=== PATIENT | female | born 1965 | race Caucasian/White ===

== ENCOUNTER 2019-10-30 17:31 | Emergency (ER) | payer MEDICARE, MEDICAID, SELFPAY ==
--- NOTE | ~2019-10-30 | XR_ITS ---
XR foot RT min 3V 10/30/2019 17:55 INDICATION: Right foot pain after recent fall PROCEDURE: 4 views right foot COMPARISON: No prior studies for comparison. FINDINGS: Fracture, dislocation or subluxation is not identified. Lisfranc joint intact. Mild osteoar thritis first MTP joint. The soft tissues appear within normal limits. No foreign bodies are identif ied. IMPRESSION: 1: NO ACUTE BONE OR JOINT ABNORMALITY IDENTIFIED. Reviewed, dictated and finalized at location A.
[2019-10-30 17:43] VITALS: BP 133/95; PULSE 66; RESP 16; TEMP 36.3; O2SAT 100
--- NOTE | 2019-10-30 18:17 | ED.GENADULT ---
HPI - General Adult General Chief complaint: Extremity Injury, Lower Stated complaint: R FOOT INJURY Time Seen by Provider: 10/30/19 17:36 Source: patient Mode of arrival: ambulatory Limitations: no limitations History of Present Illness HPI narrative: Patient is a 53-year-old female who presents with right foot pain noting pain to the digits and forefoot of the foot after injuring the foot over a week ago has still been having pain. Denies new injury or trauma. Notes aching pain worse with activity and movement of the digits . Pain is localized to the forefoot and midfoot with no radiation beyond this. Patient presents per private vehicle in no distress Related Data Allergies Allergy/AdvReac Type Severity Reaction Status Date / Time ibuprofen Allergy Mild SWELLING, Verified 03/23/16 16:17 RASH TO FACE, VOMITING Review of Systems Review of Systems: All systems reviewed & are unremarkable except as noted in HPI and below PMFSH Past Medical History Medical History Anxiety Bowel obstruction Bronchitis COPD (chronic obstructive pulmonary disease) Depression H/O: HTN (hypertension) Hx of melanoma of skin Hypercholesteremia Hypothyroid Thoracic injuries disc compaction Surgical History Surgical History History of appendectomy History of spinal surgery Hx of cardiac cath with 2 stents placed. Hx of tubal ligation Social History Social History Smoking packs per day: 1 Smoking cigarettes per day: 20.0 Smoking status: Current every day smoker Second hand tobacco smoke exposure: Yes Gender identity (if verbalized by the patient): Female Exam Narrative: Exam Narrative: GENERAL: Well-appearing, well-nourished, and in no acute distress. HEAD: Normocephalic, atraumatic. EYES: PERRLA and EOMI. ENT: Nares clear, no rhinorrhea or epistaxis. Mucous membranes moist. EXTREMITIES: Normal range of motion. No edema. SKIN: Warm, dry, no rash. Tenderness of the digits and right forefoot with no deformity noted NEURO: No focal deficits. Alert and oriented x3. Neurovascularly intact. Capillary refill less than 2 seconds PSYCH: Normal mood and affect. Course Course Emergency Course: Patient in the room in no distress aware of case findings treatment plan and diagnosis Vital Signs Vital signs: Vital Signs Temperature 97.4 F L 10/30/19 17:43 Pulse Rate 66 10/30/19 17:43 Respiratory Rate 16 10/30/19 17:43 Blood Pressure 133/95 H 10/30/19 17:43 Pulse Oximetry 100 10/30/19 17:43 Temperature 97.4 F L 10/30/19 17:43 Pulse Rate 66 10/30/19 17:43 Respiratory Rate 16 10/30/19 17:43 Blood Pressure 133/95 H 10/30/19 17:43 Pulse Oximetry 100 10/30/19 17:43 Medical Decision Making MDM Narrative Medical decision making narrative: Patients injury or pain is consistent with musculoskeletal etiology. No signs of neurological or vascular compromise on exam. Compartments and tisues are soft without signs of compartment syndrome. Pain is felt appropriate for further evaluation on an outpatient basis. Vital Signs Vital Signs: Vital Signs Temperature 97.4 F L 10/30/19 17:43 Pulse Rate 66 10/30/19 17:43 Respiratory Rate 16 10/30/19 17:43 Blood Pressure 133/95 H 10/30/19 17:43 Pulse Oximetry 100 10/30/19 17:43 Temperature 97.4 F L 10/30/19 17:43 Pulse Rate 66 10/30/19 17:43 Respiratory Rate 16 10/30/19 17:43 Blood Pressure 133/95 H 10/30/19 17:43 Pulse Oximetry 100 10/30/19 17:43 Discharge Plan Discharge Clinical Impression: Acute pain of right foot Patient Disposition: Home, Self-Care Condition: Stable Instructions: Antibiotic Form, Foot Sprain (ED) Additional Instructions: Wear postop shoe with limited weight on the affected leg until able to bear weight wit
[2019-10-30 18:28] VITALS: BP 128/62; PULSE 78; RESP 16; TEMP 36.9; O2SAT 99
== END 2019-10-30 18:30 | disposition home or self-care (01) ==
PROVIDERS: Emergency Provider Emergency Medicine; PCP Internal Medicine
DX: M79.671 Pain in right foot (principal); J44.9 Chronic obstructive pulmonary disease, unspecified; I10 Essential (primary) hypertension; Z85.820 Personal history of malignant melanoma of skin; E78.00 Pure hypercholesterolemia, unspecified; E03.9 Hypothyroidism, unspecified; Z95.5 Presence of coronary angioplasty implant and graft; F17.210 Nicotine dependence, cigarettes, uncomplicated
CPT/HCPCS: 73630; 99283

== ENCOUNTER 2019-11-23 13:01 | Outpatient (CLI) | payer MEDICARE, MEDICAID, SELFPAY ==
--- NOTE | ~2019-11-23 | MR_ITS ---
EXAMINATION: MR cervical spine wo con EXAM DATE: 11/23/2019 13:55 INDICATION: Cervical radiculopathy. TECHNIQUE: Multi-sequential, multiplanar MR images of the cervical spine were obtained without contra st. Axial T2, axial T2 MERGE sequence. Sagittal T1, T2, T2 fat saturation images also obtained. Th ere is no prior study for comparison. FINDINGS: The vertebral bodies are aligned in the AP dimension. Vertebral body and disc heights are well-maintained. The spinal cord signal intensity and intrinsic morphology is normal. Cervicomedullar y junction is normal in appearance. There are no suspicious marrow signal abnormalities. Paraspinal s oft tissue is unremarkable. Level by level evaluation: C2-C3: Disc does not extend beyond the endplate margin. Uncovertebral joint arthropathy: None. Facet joint arthropathy: Mild bilateral. Neural foraminal stenosis: No stenosis. Central canal stenosis: No stenosis. C3-C4: Disc does not extend beyond the endplate margin. Uncovertebral joint arthropathy: None. Facet joint arthropathy: Mild to moderate bilateral. Neural foraminal stenosis: No stenosis. Central canal stenosis: No stenosis. C4-C5: Disc does not extend beyond the endplate margin. Uncovertebral joint arthropathy: None. Facet joint arthropathy: Mild to moderate bilateral. Neural foraminal stenosis: No stenosis. Central canal stenosis: No stenosis. C5-C6: Disc does not extend beyond the endplate margin. Uncovertebral joint arthropathy: Mild bilateral. Facet joint arthropathy: Mild to moderate bilateral. Neural foraminal stenosis: Mild right. Central canal stenosis: No stenosis. C6-C7: Disc does not extend beyond the endplate margin. Uncovertebral joint arthropathy: None. Facet joint arthropathy: Mild bilateral. Neural foraminal stenosis: No stenosis. Central canal stenosis: No stenosis. C7-T1: Disc does not extend beyond the endplate margin. Uncovertebral joint arthropathy: None. Facet joint arthropathy: Mild bilateral. Neural foraminal stenosis: No stenosis. Central canal stenosis: No stenosis. IMPRESSION: Mild to moderate cervical arthropathy without stenosis. Reviewed, dictated and finalized at location A.
== END 2019-11-23 13:02 | disposition home or self-care (01) ==
PROVIDERS: PCP Internal Medicine; Visit Provider Psychiatry & Neurology Neurology
DX: M54.12 Radiculopathy, cervical region (principal)
CPT/HCPCS: 72141

== ENCOUNTER 2021-05-02 16:40 | Emergency (ER) | payer MEDICARE, MEDICAID, SELFPAY ==
--- NOTE | ~2021-05-02 | US_ITS ---
EXAMINATION: US pelvic complete w TV DATE: 05/02/2021 17:33 INDICATION: Pelvic pain TECHNIQUE: Multiple transabdominal and endovaginal sonographic images of the pelvis were obtained. COMPARISON: None. FINDINGS: The uterus measures 4.6 x 2.6 x 3.4 cm. The endometrial complex measures 5 mm. The ovaries are not visualized however no adnexal abnormality is seen. There is no free fluid in the pelvis. IMPRESSION: 1. No sonographic correlate for the patient's symptoms. Reviewed, dictated and finalized at location F. CRINOLOGY PHYSICIAN
[2021-05-02 16:42] VITALS: BP 170/107; PULSE 98; RESP 17; TEMP 36.7; O2SAT 100
[2021-05-02 17:40] LABS: Add Urine Microscopic? YES; Appearance Urine Clear (Clear); Bilirubin Urine Negative (Negative); Blood Urine Negative (Negative); Color Urine Yellow (Yellow); Glucose Urine UA Negative (Negative); Ketones Urine Negative (Negative); Leukocyte Esterase Ur Trace LEU/UL (Negative); Mucus Urine Few /lpf; Nitrate Urine Negative (Negative); Protein Urine Negative (Negative); Specific Grav Ur 1.025 (1.001-1.035); Squamous Epithelial Cell Urine Occasional /hpf (Few); Urobilinogen Urine Negative mg/dL (<2.0); WBC Urine 0-3 /hpf
[2021-05-02] MEDS: KETOROLAC 30 MG/ML VIAL (*BKC) IM (17:40)
[2021-05-02 18:18] VITALS: BP 142/78; PULSE 78; RESP 18; O2SAT 97
--- NOTE | 2021-05-02 18:23 | ED.GENADULT ---
HPI - General Adult General Chief complaint: Urogenital-Female <Leonard Wall PA-C - Last Filed: 05/02/21 19:29> Stated complaint: BV PELVIC PAIN ?PID <Leonard Wall PA-C - Last Filed: 05/02/21 19:29> Time Seen by Provider: 05/02/21 16:50 <Leonard Wall PA-C - Last Filed: 05/02/21 19:29> Source: patient <Leonard Wall PA-C - Last Filed: 05/02/21 19:29> Mode of arrival: ambulatory <Leonard Wall PA-C - Last Filed: 05/02/21 19:29> Limitations: no limitations <Leonard Wall PA-C - Last Filed: 05/02/21 19:29> History of Present Illness HPI narrative: Patient is a 59-year-old female with chief complaint of pelvic pain over the past 6 months. Patient reports she has been evaluated by her provider [facility]. She reports having received these labs, pelvic exam, Pap smear. She was diagnosed with BV and put on antibiotics which cleared her vaginal discharge but has not remitted her intermittent pelvic pain. Patient reports her doctor told her the next step was a pelvic US but they have not yet gotten her scheduled. Patient reports she was told they didn't see abnormalities during her pelvic. She reports sexual intercourse is painful. She denies vaginal bleeding, vaginal discharge, or other vaginal abnormalities. Patient denies fever, chills, nausea, vomiting, diarrhea. Patient also reports burning with urination. <Leonard Wall PA-C - Last Filed: 05/02/21 19:29> Related Data Home medications: Home Medications Medication Instructions Recorded Confirmed acyclovir 05/02/21 baclofen 10 mg PO 05/02/21 clopidogrel 05/02/21 doxycycline monohydrate 100 mg PO 05/02/21 levothyroxine 137 mcg PO 05/02/21 metronidazole 05/02/21 oxycodone-acetaminophen 05/02/21 rosuvastatin mg 05/02/21 <VIV Booker Last Filed: 05/02/21 19:29> Allergies/adverse reactions: Allergies Allergy/AdvReac Type Severity Reaction Status Date / Time No Known Allergies Allergy Verified 05/02/21 16:59 <Leonard Wall PA-C - Last Filed: 05/02/21 19:29> Review of Systems Review of Systems: CONSTITUTIONAL: Denies fever, chills, or sweats. EYES: Denies visual changes, redness, or discharge. ENT: Denies rhinorrhea, congestion, sore throat, or otalgia. CARDIOVASCULAR: Denies chest pain, palpitations, or edema. RESPIRATORY: Denies cough or dyspnea. GASTROINTESTINAL: Denies abdominal pain, nausea, vomiting, or diarrhea. GENITOURINARY: Reports intermittent pelvic pain Denies dysuria or hematuria. SKIN: Denies rash or itching. MUSCULOSKELETAL: Denies back pain, joint pain, or myalgia. NEUROLOGIC: Denies headache, numbness, dizziness, or weakness. PSYCHIATRIC: Denies anxiety or depression. <Leonard Wall PA-C - Last Filed: 05/02/21 19:29> [facility]LY [facility] Past Medical History Medical History: Medical History (Updated 05/03/21 @ 00:00 by Fabian Florian) Anxiety Bowel obstruction Bronchitis COPD (chronic obstructive pulmonary disease) Depression H/O: HTN (hypertension) Hx of melanoma of skin Hypercholesteremia Hypothyroid Thoracic injuries disc compaction <Leonard Wall PA-C - Last Filed: 05/02/21 19:29> Surgical History Surgical History: Surgical History History of appendectomy History of spinal surgery Hx of cardiac cath with 2 stents placed. Hx of tubal ligation <Leonard Wall PA-C - Last Filed: 05/02/21 19:29> Social History Social History: Social History Smoking packs per day: 1 Smoking cigarettes per day: 20.0 Smoking status: Current every day smoker Second hand tobacco smoke exposure: Yes Gender identity (if verbalized by the patient): Female <VIV Booker Last Filed: 05/02/21 19:29> Exam Narrative: GENERAL: Well-nourished. Nontoxic in appearance. HEAD: Normocephalic, atraumatic. EYES: PERRLA and EOMI. CHEST: Clear to ausculta
[2021-05-02 19:32] VITALS: PULSE 70; RESP 18; O2SAT 100
== END 2021-05-02 19:32 | disposition home or self-care (01) ==
PROVIDERS: Emergency Provider Emergency Medicine; PCP Internal Medicine
DX: R10.2 Pelvic and perineal pain (principal); J44.9 Chronic obstructive pulmonary disease, unspecified; I10 Essential (primary) hypertension; Z85.820 Personal history of malignant melanoma of skin; E78.00 Pure hypercholesterolemia, unspecified; E03.9 Hypothyroidism, unspecified; F17.210 Nicotine dependence, cigarettes, uncomplicated
CPT/HCPCS: 76830; 76856; 81001; 81025; 87086; 96372; 99284; J1885

== ENCOUNTER 2022-04-28 02:50 | Emergency (ER) | payer MEDICARE, MEDICAID, SELFPAY ==
[2022-04-28 02:51] VITALS: BP 137/89; PULSE 98; RESP 16; O2SAT 98
--- NOTE | 2022-04-28 02:56 | ED.BACK ---
HPI - Back Pain/Injury General Chief Complaint: Back Pain/Injury Stated Complaint: BACK PAIN-CHRONIC Time Seen by Provider: 04/28/22 02:51 Source: patient Mode of arrival: EMS Limitations: no limitations History of Present Illness HPI Narrative: 56-year-old with a history of chronic back pain here with complaints of increased back pain since last night. Patient states that she ran out of oxycodone tablets. Patient states that her mom was admitted to the hospital a week ago and she has been in the hospital with her and was unable to get her medication refill, she states that she is under pain management. She is states that she was unable to sleep because of her pain. She denies any fever or chills. Patient states that she has been taking more than normal dose. MD elicited complaint: back pain Pertinent past history: prior back pain Onset (ago): year(s) Timing: constant Severity: moderate Similar Symptoms Previously: Yes Quality: stabbing and aching Location: lumbar spine, thoracic spine and left lower back Radiation: none Exacerbating factors: none Relieving factors: none Associated symptoms: denies other symptoms Related Data Home Medications Medication Instructions Recorded Confirmed acyclovir 400 mg tablet 05/02/21 baclofen 10 mg tablet 10 mg PO 05/02/21 clopidogrel 75 mg tablet 05/02/21 doxycycline monohydrate 100 mg 100 mg PO 05/02/21 capsule levothyroxine 137 mcg tablet 137 mcg PO 05/02/21 metronidazole 500 mg tablet 05/02/21 oxycodone-acetaminophen 5 mg-325 05/02/21 mg tablet rosuvastatin 20 mg tablet mg 05/02/21 Allergies Allergy/AdvReac Type Severity Reaction Status Date / Time No Known Allergies Allergy Verified 04/28/22 02:56 Review of Systems Review of Systems: All systems reviewed & are unremarkable except as noted in HPI and below Constitutional: Constitutional: Reports no additional constitutional complaints Eyes: Eyes: Reports no additional eye complaints ENT: Reports system reviewed and no additional complaints, except as documented Cardiovascular: Cardiovascular: Reports no additional cardiovascular complaints Respiratory: Respiratory: Reports no additional respiratory complaints Musculoskeletal: Musculoskeletal: Reports as per HPI Integumentary/Breasts: Skin/Breast: Reports system reviewed and no additional complaints, except as docu [facility] Past Medical History Medical History (Updated 04/28/22 @ 03:03 by oHracio Owens MD) Anxiety Bowel obstruction Bronchitis COPD (chronic obstructive pulmonary disease) Depression H/O: HTN (hypertension) Hx of melanoma of skin Hypercholesteremia Hypothyroid Thoracic injuries disc compaction Surgical History Surgical History History of appendectomy History of spinal surgery Hx of cardiac cath with 2 stents placed. Hx of tubal ligation Social History Social History Smoking packs per day: 1 Smoking cigarettes per day: 20.0 Smoking status: Current every day smoker Second hand tobacco smoke exposure: Yes Gender identity (if verbalized by the patient): Female Exam Narrative: GENERAL: Well-appearing, well-nourished, and in no acute distress. HEAD: Normocephalic, atraumatic. EYES: PERRLA and EOMI. NECK: Supple. CHEST: Clear to auscultation. No respiratory distress. HEART: Regular rate and rhythm. No murmur heard. Normal peripheral pulses. EXTREMITIES: Normal range of motion. No edema. SKIN: Warm, dry, no rash. NEURO: No focal deficits. Alert and oriented x3. PSYCH: Normal mood and affect. Course Course Emergency Course: Inform patient that we would not be able to refill her chronic pain medication there is being a weekend we will give her very limited supply patient is agreeable with the plan Vital Signs Vital signs: Vital Signs Pulse Rate 98 04/28/22 02:51 Respiratory Rate 16
== END 2022-04-28 03:58 | disposition home or self-care (01) ==
LOC: ANHED 03:07
PROVIDERS: Emergency Provider Family Medicine; PCP Internal Medicine
DX: G89.4 Chronic pain syndrome (principal); M54.50 Low back pain, unspecified; J44.9 Chronic obstructive pulmonary disease, unspecified; I10 Essential (primary) hypertension; E78.00 Pure hypercholesterolemia, unspecified; E03.9 Hypothyroidism, unspecified; Z85.820 Personal history of malignant melanoma of skin; Z95.5 Presence of coronary angioplasty implant and graft; F17.210 Nicotine dependence, cigarettes, uncomplicated
CPT/HCPCS: 99283

== ENCOUNTER 2022-08-21 19:55 | Emergency (ER) | payer MEDICARE, MEDICAID, SELFPAY ==
[2022-08-21 20:19] VITALS: BP 126/111; PULSE 108; RESP 20; TEMP 37; O2SAT 98
--- NOTE | 2022-08-21 22:14 | PC.NURSE ---
no answer x2 at triage
== END 2022-08-21 22:15 | disposition left against medical advice (07) ==
PROVIDERS: PCP Internal Medicine
DX: R10.2 Pelvic and perineal pain (principal)
CPT/HCPCS: 99199

== ENCOUNTER 2022-09-05 13:30 | Outpatient (CLI) | payer MEDICARE, MEDICAID, SELFPAY ==
--- NOTE | ~2022-09-05 | XR_ITS ---
EXAMINATION: XR lg joint inject/asp w image DATE: 09/05/2022 14:34 INDICATION: Right sacroiliac joint pain. TECHNIQUE: A time-out was performed to verify the patient's name, date of , and procedure to b e performed. The procedure including the risks, benefits, and alternatives was discussed with the pat ient. Risks discussed included bleeding and infection. The patient understood the risks and agreed to proceed. The skin overlying the right sacroiliac joint was prepped and draped in usual sterile fas ion. Anesthetic was administered with 1% lidocaine subcutaneously. A 22 G needle was advanced under fluoroscopic guidance into the joint. Subsequently, injectate consisting of 2 mL 1% lidocaine and 1 mL 80 mg/mL Depo-Medrol was instilled. The needle was removed and the entry site was cleaned and dr essed. There were no immediate complications. Fluoroscopy exposure time was 0.0 minutes. The total n umber of images was 1. FINDINGS: Real-time fluoroscopy demonstrates the needle in the right sacroiliac joint. Patient's pain prior to procedure:09/29. Patient's pain following the procedure: 06/01. IMPRESSION: 1. Fluoroscopy guided right sacroiliac joint injection of local anesthetic and steroid with decrease in the patient's presenting pain. Reviewed, dictated and finalized at location A.
== END 2022-09-05 13:31 | disposition home or self-care (01) ==
PROVIDERS: PCP Internal Medicine; Visit Provider Orthopaedic Surgery
DX: R10.2 Pelvic and perineal pain (principal); M54.50 Low back pain, unspecified
CPT/HCPCS: 20610; 77002; J1040

== ENCOUNTER 2022-12-20 20:57 | Emergency (ER) | payer MEDICARE, MEDICAID, SELFPAY ==
--- NOTE | ~2022-12-20 | XR_ITS ---
EXAMINATION: XR chest 2V DATE: 12/20/2022 21:52 INDICATION: Shortness of breath. TECHNIQUE: Frontal and lateral views of the chest were obtained. COMPARISON: Chest 2 views 04/24/2019 FINDINGS: There is chronic blunting of left lateral costophrenic angle, consistent with scarring. No pneumonia, pleural effusion or pneumothorax. The heart size is normal. There are old left rib deformi ties. IMPRESSION: 1. No acute cardiopulmonary disease. Reviewed, dictated and finalized at location E.
[2022-12-20 20:55] VITALS: BP 138/95; PULSE 99; RESP 20; TEMP 36.8; O2SAT 96
--- NOTE | 2022-12-20 21:01 | ECG_ITS ---
Measurements Intervals [place] Rate: 88 P: 85 MN: 147 QRS: 46 QRSD: 74 T: 51 QT: 345 QTc: 419 Interpretive Statements SINUS RHYTHM POSSIBLE LEFT ATRIAL ENLARGEMENT NONSPECIFIC T-WAVE ABNORMALITY- DIFFUSE LEADS BASELINE ARTIFACT- I, II, AVR, AVL, AVF, V2-V6 BORDERLINE ECG COMPARED TO ECG 04/24/2019 18:34:44 NO SIGNIFICANT CHANGES Electronically Signed On 12-21-2022 6:48:09 CDT by Hung Palencia D.O.
--- NOTE | 2022-12-20 21:27 | ED.SOB ---
HPI - SOB/Dyspnea General Chief Complaint: Shortness of Breath/Dyspnea Stated Complaint: sob Time Seen by Provider: 12/20/22 21:05 History of Present Illness HPI Narrative: Patient is a 57-year-old female with a history of COPD presenting with shortness of breath. Patient states that since yesterday she has had a nasal congestion and cough. States that she started taking some Mucinex today but she became increasingly short of breath. States that her chest felt tight and full. States that her inhalers are out. EMS was called and she received Decadron and a breathing treatment. She states that she feels much better now. No fevers or chills, numbness or weakness, chest pain, lightheadedness, abdominal pain, nausea or vomiting, dysuria, leg swelling. Related Data Home Medications Medication Instructions Recorded Confirmed acyclovir 400 mg tablet 05/02/21 baclofen 10 mg tablet 10 mg PO 05/02/21 clopidogrel 75 mg tablet 05/02/21 doxycycline monohydrate 100 mg 100 mg PO 05/02/21 capsule levothyroxine 137 mcg tablet 137 mcg PO 05/02/21 metronidazole 500 mg tablet 05/02/21 oxycodone-acetaminophen 5 mg-325 05/02/21 mg tablet rosuvastatin 20 mg tablet mg 05/02/21 Allergies Allergy/AdvReac Type Severity Reaction Status Date / Time ibuprofen AdvReac Vomiting Verified 12/20/22 21:05 Review of Systems Review of Systems: All systems reviewed & are unremarkable except as noted in HPI and below PMFSH Past Medical History Medical History (Updated 12/21/22 @ 22:19 by Ashley Davenport MD) Anxiety Bowel obstruction Bronchitis COPD (chronic obstructive pulmonary disease) Depression H/O: HTN (hypertension) Hx of melanoma of skin Hypercholesteremia Hypothyroid Thoracic injuries disc compaction Surgical History Surgical History History of appendectomy History of spinal surgery Hx of cardiac cath with 2 stents placed. Hx of tubal ligation Social History Social History Smoking packs per day: 1 Smoking cigarettes per day: 20.0 Smoking status: Current every day smoker Second hand tobacco smoke exposure: Yes Gender identity (if verbalized by the patient): Female Exam Narrative: GENERAL: Well-appearing, well-nourished, and in no acute distress. Pleasant and cooperative HEAD: Normocephalic, atraumatic. EYES: PERRLA and EOMI. ENT: Nares clear, no rhinorrhea or epistaxis. Mucous membranes moist. NECK: Supple. CHEST: Expiratory wheezing bilaterally, no respiratory distress HEART: Regular rate and rhythm ABDOMEN: Soft, nontender, nondistended EXTREMITIES: Normal range of motion. No edema. SKIN: Warm, dry, no rash. NEURO: No focal deficits. Alert and oriented x3. PSYCH: Normal mood and affect. Course Vital Signs Vital signs: Vital Signs Temperature 98.2 F 12/20/22 20:55 Pulse Rate 99 12/20/22 20:55 Respiratory Rate 20 12/20/22 20:55 Blood Pressure 138/95 H 12/20/22 20:55 Pulse Oximetry 96 12/20/22 20:55 Oxygen Delivery Room Air 12/20/22 20:55 Temperature 98.2 F 12/20/22 20:55 Pulse Rate 112 H 12/20/22 23:01 Respiratory Rate 18 12/20/22 23:01 Blood Pressure 153/98 H 12/20/22 23:01 Pulse Oximetry 95 12/20/22 23:01 Oxygen Delivery Room Air 12/20/22 20:55 MDM - SOB/Dyspnea MDM Narrative Medical decision making narrative: Patient is a 57-year-old female presenting with shortness of breath. On arrival, vitals are within normal limits. Patient is very wheezy on exam. Breathing treatment, fluids have been ordered. She already received steroids from EMS. Blood work with hypokalemia. Troponin came back elevated at 0.088. Potassium has been repleted. Discussed the elevation in troponin and admitted the patient to the hospitalist but then the patient states that she was not staying. Patient left AGAINST MEDICAL ADVICE. Shirley
[2022-12-20] MEDS: ALBUTEROL SULFATE NEB 2.5 MG/3 ML INH 10 MG INHALATION (21:49)
[2022-12-20 21:50] VITALS: PULSE 80; RESP 14
[2022-12-20] MEDS: IPRATROPIUM BR 0.02% INH SOLN 0.5 MG/2.5 ML VIAL INHALATION (21:50)
[2022-12-20 21:53] LABS: Basophils Absolute Auto 0.1 K/mm3 (0.0-0.1); Basophils Percent Auto 0.7 % (0.2-1.2); Eosinophils Absolute Auto 0.2 K/mm3 (0-0.3); Eosinophils Percent Auto 2.7 % (0-4.4); Immature Granulocyte Absolute 0.04 K/mm3 (0.00-0.031); Immature Granulocyte Percent A 0.5 % (0-0.5); Lymphocytes Absolute Auto 0.84 K/mm3 (0.9-3.2); Lymphocytes Percent Auto 11.4 % (18.3-44.2); Mean Corpuscular HGB Conc 33.3 g/dl (32-36); Mean Corpuscular Hemoglobin 31.3 pg (26-34); Mean Corpuscular Volume 93.9 fl (80-100); Mean Platelet Volume 10.3 fl (7.4-10.4); Monocytes Absolute Auto 0.5 K/mm3 (0.1-0.6); Monocytes Percent Auto 6.1 % (2.6-8.5); Neutrophils Absolute Auto 5.8 K/mm3 (1.3-6.7); Neutrophils Percent Auto 78.6 % (45.5-73.1); Platelet Count Result 198 k/mm3 (150-375); Red Blood Count 4.79 M/mm3 (4.2-5.4); Red Cell Distribution Width 13.1 % (11.5-14.5); White Blood Count 7.4 K/mm3 (4.5-10.0)
[2022-12-20 22:03] LABS: Alanine Aminotransferase 19 U/L (6-35); Albumin Level 4.5 g/dL (3.5-5.1); Alkaline Phosphatase 85 U/L (38-126); Anion Gap 11 mmol/L (8-16); Aspartate Amino Transferase 32 U/L (14-36); Bilirubin,Total 0.4 mg/dL (0.2-1.3); Blood Urea Nitrogen 9 mg/dL (7-17); Calcium 9.3 mg/dL (8.4-10.2); Carbon Dioxide 23 mmol/L (22-30); Chloride 103 mmol/L (98-107); Estimated CRCL calculation 85 ml/min; Estimated Glomerular Filt Rate > 60; Glucose 159 mg/dL (65-110); Potassium 3.2 mmol/L (3.4-5.0); Sodium 137 mmol/L (137-145)
[2022-12-20 22:23] LABS: Troponin I 0.088 ng/mL (0.000-0.034)
[2022-12-20 22:29] LABS: Influenza A QL RT-PCR Negative (Negative); Influenza B QL RT-PCR Negative (Negative); RSV RNA, RT-PCR Negative (Negative); SARS-CoV-2 RNA PCR Negative (Negative)
[2022-12-20] MEDS: POTASSIUM CHLORIDE 20 MEQ ER TABLET 40 MEQ PO (22:57)
[2022-12-20] MEDS: SODIUM CHLORIDE 0.9% IV 1,000 ML 999 ML IV CONT (22:57)
[2022-12-20] MEDS: ASPIRIN 81 MG CHEWABLE TABLET 324 MG PO (22:57)
[2022-12-20] MEDS: ONDANSETRON INJ 4 MG/2 ML VIAL IV PUSH (22:58)
[2022-12-20 23:01] VITALS: BP 153/98; PULSE 112; RESP 18; O2SAT 95
--- NOTE | 2022-12-21 00:53 | PM.EVENT ---
Event Note Event Note Event Note: ED physician called me to admit this patient with shortness of breath and mild chest discomfort with mildly elevated troponin-I level of 0.088. She is a chronic smoker and had some wheezing as well. I accepted the patient to be placed under observation status overnight to monitor cardiac enzymes and for cardiology evaluation and workup in am. ED physician put her admits ordered in, but then patient decided to leave against medical advice.Patient was seen, evaluated and discharge by ED physician. Please note I have neither seen nor evaluated the patient during her ER stay, and she did not make it up the floor to be admitted under hospitalist service. ?
== END 2022-12-21 00:02 | disposition left against medical advice (07) ==
LOC: ANHED 21:36
PROVIDERS: Emergency Medicine; Emergency Provider Emergency Medicine; PCP Internal Medicine
DX: J44.1 Chronic obstructive pulmonary disease with (acute) exacerbation (principal); R77.8 Other specified abnormalities of plasma proteins; Z20.822 Contact with and (suspected) exposure to COVID-19; I10 Essential (primary) hypertension; E78.00 Pure hypercholesterolemia, unspecified; E03.9 Hypothyroidism, unspecified; F17.210 Nicotine dependence, cigarettes, uncomplicated; Z85.820 Personal history of malignant melanoma of skin; R94.31 Abnormal electrocardiogram [ECG] [EKG]
CPT/HCPCS: 36415; 71046; 80053; 84484; 85025; 87637; 93005; 94640; 96361; 96374; 99284; A9270; J2405; J7030

== ENCOUNTER 2023-03-12 09:54 | Emergency (ER) | payer MEDICARE, MEDICAID, SELFPAY ==
[2023-03-12] VITALS (16 sets, daily range): BP systolic 104–132; BP diastolic 80–97; PULSE 81–114; RESP 15–20; TEMP 36.4; O2SAT 95–100
--- NOTE | ~2023-03-12 | CT_ITS ---
EXAMINATION: CT abdomen pelvis w con DATE: 03/12/2023 11:20 INDICATION: Pelvic floor pain. TECHNIQUE: Computed tomography (CT) of the abdomen and pelvis was performed with 100 mL Omnipaque 350 intravenous contrast. Automated exposure control and iterative reconstruction technique were employe d. The dose-length product was 301.19 mGy-cm. COMPARISON: None. FINDINGS: The visualized portions of the lung bases demonstrate mild atelectasis. No pleural effusion . The heart size is normal. There are coronary artery calcifications. No pericardial effusion. There is mild intrahepatic bile duct dilatation. The common duct is dilated to 9 mm. The gallbladder is dis tended. The spleen, pancreas, adrenal glands, and kidneys are normal. There is calcified atherosclero sis of the aorta and many of the other arteries. The appendix is not visualized. There are no patholo gically enlarged lymph nodes. There is no free intraperitoneal fluid. There is mild thoracic and lumb ar spondylosis. IMPRESSION: 1. Mild intrahepatic and extrahepatic biliary duct dilatation and gallbladder distention. No obstruct ing stone or mass identified. Reviewed, dictated and finalized at location E. AGENT IMPRESSION: 1. Mild intrahepatic and extrahepatic biliary duct dilatation and gallbladder d istention. No obstructing stone or mass identified.
[2023-03-12 10:35] LABS: Basophils Absolute Auto 0.1 K/mm3 (0.0-0.1); Basophils Percent Auto 0.7 % (0.2-1.2); Eosinophils Absolute Auto 0.1 K/mm3 (0-0.3); Eosinophils Percent Auto 1.8 % (0-4.4); Hematocrit 47.3 % (37.0-47.0); Hemoglobin 15.6 g/dL (12.0-15.0); Immature Granulocyte Absolute 0.03 K/mm3 (0.00-0.031); Immature Granulocyte Percent A 0.4 % (0-0.5); Lymphocytes Absolute Auto 1.32 K/mm3 (0.9-3.2); Lymphocytes Percent Auto 17.2 % (18.3-44.2); Mean Corpuscular Hemoglobin 30.6 pg (26-34); Mean Corpuscular Volume 92.7 fl (80-100); Monocytes Absolute Auto 0.4 K/mm3 (0.1-0.6); Monocytes Percent Auto 5.1 % (2.6-8.5); Neutrophils Absolute Auto 5.7 K/mm3 (1.3-6.7); Neutrophils Percent Auto 74.8 % (45.5-73.1); Platelet Count Result 272 k/mm3 (150-375); Red Cell Distribution Width 12.4 % (11.5-14.5); White Blood Count 7.7 K/mm3 (4.5-10.0)
[2023-03-12 10:36] LABS: Appearance Urine Clear (Clear); Bilirubin Urine Negative (Negative); Blood Urine Negative (Negative); Color Urine Yellow (Yellow); Glucose Urine UA 3+ mg/dL (Negative); Ketones Urine 1+ mg/dL (Negative); Leukocyte Esterase Ur Negative LEU/UL (Negative); Nitrate Urine Negative (Negative); Protein Urine Negative (Negative); Specific Grav Ur 1.022 (1.001-1.035); pH Urine 7.5 (5.0-9.0)
--- NOTE | 2023-03-12 10:38 | ED.GENADULT ---
HPI - General Adult General Chief complaint: Unspecified Stated complaint: pelvic floor pain Time Seen by Provider: 03/12/23 10:17 History of Present Illness HPI narrative: 57-year-old female presenting to the emergency department for evaluation of pelvic pain. Patient reports that she has chronic pelvic pain daily. Patient states yesterday she ran out of her pain medications due to increased activity due to the holidays. Patient states he does not get a medication refill until tomorrow. Related Data Home Medications Medication Instructions Recorded Confirmed acyclovir 400 mg tablet 05/02/21 baclofen 10 mg tablet 10 mg PO 05/02/21 clopidogrel 75 mg tablet 05/02/21 doxycycline monohydrate 100 mg 100 mg PO 05/02/21 capsule levothyroxine 137 mcg tablet 137 mcg PO 05/02/21 metronidazole 500 mg tablet 05/02/21 oxycodone-acetaminophen 5 mg-325 05/02/21 mg tablet rosuvastatin 20 mg tablet mg 05/02/21 Allergies Allergy/AdvReac Type Severity Reaction Status Date / Time ibuprofen AdvReac Vomiting Verified 12/20/22 21:05 Review of Systems Review of Systems: All systems reviewed & are unremarkable except as noted in HPI and below PMFSH Past Medical History Medical History (Updated 03/12/23 @ 12:46 by Jesus Keenan MD) Anxiety Bowel obstruction Bronchitis COPD (chronic obstructive pulmonary disease) Depression H/O: HTN (hypertension) Hx of melanoma of skin Hypercholesteremia Hypothyroid Thoracic injuries disc compaction Surgical History Surgical History History of appendectomy History of spinal surgery Hx of cardiac cath with 2 stents placed. Hx of tubal ligation Social History Social History Smoking packs per day: 1 Smoking cigarettes per day: 20.0 Smoking status: Current every day smoker Second hand tobacco smoke exposure: Yes Gender identity (if verbalized by the patient): Female Exam Narrative: APPEARANCE: Well appearing, no pain, no distress, well-nourished. HEAD: normocephalic, atraumatic. EYES: PERRLA/EOMI, conjunctivae clear. NOSE: Normal no drainage EARS:TMS clear with good light reflex. THROAT: Pharynx clear, no exudate. NECK: Supple. No adenopathy, no masses. RESPIRATORY: Airway patent, respirations nonlabored. Clear to auscultation bilaterally, no rales, rhonchi, wheezing. CARDIOVASCULAR: Regular rate and rhythm without murmurs rubs or gallops. ABDOMINAL: No right upper quadrant tenderness to palpation MUSCULOSKELETAL: Moves all extremities. Strength/ROM intact, No edema, No calf tenderness. NEURO: Alert. Cranial nerves II through XII intact. Good gait. Good coordination SKIN: Warm, dry. Normal Color PSYCHIATRIC: Normal affect/mood. Course Course Emergency Course: 57-year-old female presented to ED for evaluation of lower pelvic pain. Patient suspected this was her chronic pain and she is just out of her pain medications. Patient does get her medication filled tomorrow. Pain was controlled with medications in the wrist per. Patient was afebrile with no leukocytosis and a stable hemoglobin. Patient had no significant abnormalities on her CMP. UA showed no evidence of infection CT showed no acute pathology. CT was concerning for some right upper quadrant / gallbladder distention but patient has no change in her liver enzymes and has no reproducible right upper quadrant tenderness to palpation. Patient was updated on the results of the workup and was encouraged to continue with close follow-up with her primary care physician. Vital Signs Vital signs: Vital Signs Temperature 97.6 F 03/12/23 09:52 Pulse Rate 114 H 03/12/23 09:52 Respiratory Rate 20 03/12/23 09:52 Blood Pressure 104/94 H 03/12/23 09:52 Pulse Oximetry 100 03/12/23 09:52 Oxygen Delivery Room Air 03/12/23 09:52 Temperature 97.6 F 03/12/23
[2023-03-12 10:41] LABS: Add Urine Microscopic? NO
[2023-03-12 10:46] LABS: Prothrombin Time 13.3 Seconds (11.1-14.7)
[2023-03-12 10:47] LABS: Alanine Aminotransferase 13 U/L (6-35); Albumin Level 4.5 g/dL (3.5-5.1); Alkaline Phosphatase 76 U/L (38-126); Anion Gap 11 mmol/L (8-16); Aspartate Amino Transferase 19 U/L (14-36); Bilirubin,Total 0.8 mg/dL (0.2-1.3); Blood Urea Nitrogen 8 mg/dL (7-17); Calcium 9.8 mg/dL (8.4-10.2); Carbon Dioxide 22 mmol/L (22-30); Chloride 105 mmol/L (98-107); Estimated CRCL calculation 97 ml/min; Estimated Glomerular Filt Rate > 60; Glucose 123 mg/dL (65-110); Partial Thromboplastin Time 30.6 SECONDS (22.3-36.8); Potassium 3.8 mmol/L (3.4-5.0); Sodium 138 mmol/L (137-145)
[2023-03-12] MEDS: HYDROmorphone HCL INJ (*CRX) 1 MG/ML SYR IV PUSH (10:49)
[2023-03-12] MEDS: HYDROcodone/acetaminophen (*CRX) 10-325 MG TABLET 1 TAB PO (12:57)
== END 2023-03-12 13:02 | disposition home or self-care (01) ==
PROVIDERS: Emergency Provider Emergency Medicine; PCP Internal Medicine
DX: R10.2 Pelvic and perineal pain (principal); F17.210 Nicotine dependence, cigarettes, uncomplicated; F41.9 Anxiety disorder, unspecified; J44.9 Chronic obstructive pulmonary disease, unspecified; F32.A Depression, unspecified; I10 Essential (primary) hypertension; E78.5 Hyperlipidemia, unspecified; E03.9 Hypothyroidism, unspecified
CPT/HCPCS: 36415; 74177; 80053; 81003; 83605; 85025; 85610; 85730; 96374; 99284; A9270; J1170; Q9967

== ENCOUNTER 2023-09-03 14:40 | Outpatient (CLI) | payer MEDICARE, MEDICAID, SELFPAY ==
[2023-09-03 15:08] LABS: Alanine Aminotransferase 11 U/L (6-35); Albumin Level 4.6 g/dL (3.5-5.1); Alkaline Phosphatase 86 U/L (38-126); Anion Gap 6 mmol/L (4-12); Aspartate Amino Transferase 20 U/L (14-36); Bilirubin,Total 0.5 mg/dL (0.2-1.3); Blood Urea Nitrogen 13 mg/dL (7-17); Calcium 9.6 mg/dL (8.4-10.2); Carbon Dioxide 27 mmol/L (22-30); Chloride 104 mmol/L (98-107); Cholesterol 161 mg/dL (0-200); Estimated Glomerular Filt Rate > 60; Glucose 92 mg/dL (65-110); HDL Direct 57 mg/dL; Sodium 137 mmol/L (137-145); Triglycerides 183 mg/dL (<150)
[2023-09-03 15:19] LABS: LDL Cholesterol Direct 79 mg/dL
== END 2023-09-03 14:41 | disposition home or self-care (01) ==
PROVIDERS: PCP Family Medicine Adolescent Medicine; Visit Provider Family Medicine Adolescent Medicine
DX: E03.9 Hypothyroidism, unspecified (principal); E78.00 Pure hypercholesterolemia, unspecified; I25.10 Atherosclerotic heart disease of native coronary artery without angina pectoris; M79.2 Neuralgia and neuritis, unspecified; F41.9 Anxiety disorder, unspecified
CPT/HCPCS: 36415; 80053; 80061; 84443

== ENCOUNTER 2023-10-23 12:46 | Emergency (ER) | payer MEDICARE, MEDICAID, SELFPAY ==
[2023-10-23 12:46] VITALS: BP 138/86; PULSE 87; RESP 16; TEMP 36.8; O2SAT 98
--- NOTE | 2023-10-23 13:22 | PC.NURSE ---
patient requests to have IV taken out that was placed by ems because they state they are leaving to go to [facility]. patient states that they got in contact with doctor and plan to go straight there by private vehicle. patient does not appear in any distress and IV was removed intact. patient ambulates well and appears in no resp. distress. all questions answered.
== END 2023-10-23 13:33 | disposition left against medical advice (07) ==
DX: Z53.21 Procedure and treatment not carried out due to patient leaving prior to being seen by health care provider (principal)
CPT/HCPCS: 99199

== ENCOUNTER 2023-10-23 23:33 | Emergency (ER) | payer MEDICARE, MEDICAID, SELFPAY ==
[2023-10-23 23:40] VITALS: BP 107/73; PULSE 106; RESP 20; TEMP 36.8; O2SAT 98
[2023-10-24] MEDS: ONDANSETRON INJ 4 MG/2 ML VIAL IV PUSH (00:43)
[2023-10-24] MEDS: MORPHINE SULFATE (*CRX) 4 MG/ML INJ IV PUSH (00:43)
[2023-10-24 00:51] LABS: Basophils Percent Auto 0.4 % (0.2-1.2); Eosinophils Absolute Auto 0.1 K/mm3 (0-0.3); Eosinophils Percent Auto 1.6 % (0-4.4); Hemoglobin 17.2 g/dL (12.0-15.0); Immature Granulocyte Absolute 0.02 K/mm3 (0.00-0.031); Immature Granulocyte Percent A 0.2 % (0-0.5); Mean Corpuscular HGB Conc 34.4 g/dl (32-36); Mean Corpuscular Hemoglobin 31.2 pg (26-34); Mean Corpuscular Volume 90.7 fl (80-100); Monocytes Absolute Auto 0.5 K/mm3 (0.1-0.6); Monocytes Percent Auto 5.8 % (2.6-8.5); Neutrophils Absolute Auto 6.6 K/mm3 (1.3-6.7); Platelet Count Result 267 k/mm3 (150-375); Red Blood Count 5.51 M/mm3 (4.2-5.4); Red Cell Distribution Width 13.5 % (11.5-14.5)
[2023-10-24 01:00] VITALS: BP 132/71; PULSE 81; RESP 15; O2SAT 96
[2023-10-24 01:00] LABS: Anion Gap 8 mmol/L (4-12); Blood Urea Nitrogen 7 mg/dL (7-17); Calcium 9.8 mg/dL (8.4-10.2); Carbon Dioxide 25 mmol/L (22-30); Chloride 104 mmol/L (98-107); Estimated CRCL calculation 72 ml/min; Estimated Glomerular Filt Rate > 60; Glucose 112 mg/dL (65-110); Potassium 4.3 mmol/L (3.4-5.0); Sodium 137 mmol/L (137-145)
--- NOTE | 2023-10-24 01:05 | ED.FEMALEGU ---
HPI - Female Genitourinary General Chief complaint: Urogenital-Female Stated complaint: Vaginal pain Time Seen by Provider: 10/23/23 23:43 Source: patient and old records reviewed Mode of arrival: EMS Limitations: no limitations History of Present Illness HPI Narrative: Patient is a 57 y/o female who presents to the ED via EMS with report of vaginal pain. Patient reports hx of pelvic floor dysfunction. States she has had ongoing pain in her vaginal/pelvic floor for the past 6 months. States she has been seeing pain management for this. She under botox surgery for pelvic floor dysfunction [address] Pedro at [facility]. Reports she has had worsening pain since then. Has been rx'd morphine ER tablets, but ran out of these yesterday. Last dose was yesterday. reports severe pain and burning in her vagina. Reports difficulty urinating at times. Denies abdominal pain, nausea, vomiting, fevers. 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 She denies history of genital herpes. Patient was seen in the ED earlier today via EMS, but left without being seen. She then went to [facility] where she also left without being seen and returned here via EMS. Related Data Home Medications Medication Instructions Recorded Confirmed clopidogrel 75 mg tablet 05/02/21 09/10/23 rosuvastatin 20 mg tablet mg 05/02/21 09/10/23 albuterol sulfate 90 mcg/actuation inhalation 08/07/23 09/10/23 aerosol inhaler (Ventolin HFA) amlodipine 10 mg tablet 10 mg PO DAILY 08/07/23 09/10/23 empagliflozin 10 mg tablet 10 mg PO DAILY 08/07/23 09/10/23 (Jardiance) ezetimibe 10 mg tablet mg PO 08/07/23 09/10/23 oxybutynin chloride 10 mg mg PO 08/07/23 09/10/23 tablet,extended release 24 hr valacyclovir 1 gram tablet 1,000 mg PO DAILY 08/07/23 09/10/23 Allergies Allergy/AdvReac Type Severity Reaction Status Date / Time ibuprofen AdvReac Vomiting Verified 09/10/23 15:40 Review of Systems Review of Systems: CONSTITUTIONAL: Denies fever, chills, or sweats. GASTROINTESTINAL: Denies abdominal pain, nausea, vomiting, or diarrhea. GENITOURINARY: See HPI. MUSCULOSKELETAL: Denies back pain, extremity pain, myalgia. All systems reviewed & are unremarkable except as noted in HPI and below PMFSH Past Medical History Medical History Anxiety Bowel obstruction Bronchitis COPD (chronic obstructive pulmonary disease) Depression H/O: HTN (hypertension) Hx of melanoma of skin Hypercholesteremia Hypothyroid Thoracic injuries disc compaction Surgical History Surgical History History of appendectomy History of spinal surgery (~2013) Hx of cardiac cath (~2019) with 2 stents placed. Hx of tubal ligation Family History Family History Mother Heart problem Diabetes mellitus Thyroid disorder Lung cancer Father Diabetes mellitus Heart problem Cancer Thyroid disorder Grandparent Diabetes mellitus Grandparent Diabetes mellitus Other Carcinoma of colon Social History Social History Smoking packs per day: 1 Smoking cigarettes per day: 20.0 Smoking status: Current every day smoker Second hand tobacco smoke exposure: Yes Gender identity (if verbalized by the patient): Female Exam Narrative: GENERAL: Writhing around on ED stretcher, unable to sit still, rocking hips back and forth, screaming in pain. HEAD: Normocephalic, atraumatic. RESPIRATORY: Airway patent, respirations nonlabored. Clear to auscultation bilaterally, no rales, rhonchi, wheezing. CARDIOVASCULAR: Regular rate and rhythm without murmurs, rubs, or gallops. ABDOMINAL: Soft, nontender, nondistended. Normoactive BS. PELVIC: Normal external genitalia, no genital lesions or bliste
[2023-10-24 01:08] LABS: Appearance Urine Clear (Clear); Bilirubin Urine Negative (Negative); Blood Urine Negative (Negative); Color Urine Yellow (Yellow); Glucose Urine UA Negative (Negative); Ketones Urine Negative (Negative); Leukocyte Esterase Ur Negative LEU/UL (Negative); Nitrate Urine Negative (Negative); Protein Urine Negative (Negative); Specific Grav Ur 1.007 (1.001-1.035); Urobilinogen Urine 0.2 mg/dL (<2.0)
[2023-10-24 01:11] LABS: Add Urine Microscopic? NO
[2023-10-24 01:13] LABS: Pregnancy On Board Control Positive; Urine Pregnancy Test Negative
[2023-10-24 01:24] LABS: Amphetamine Screen Urine Negative (Negative); Barbiturate Screen Urine Negative (Negative); Benzodiazepines Screen Urine Negative (Negative); Cannabinoid Screen Urine Positive (Negative); Cocaine Screen Urine Negative (Negative); Methadone Screen Urine Negative (Negative); Opiate Screen Urine Positive (Negative); Phencyclidine Screen Urine Negative (Negative)
[2023-10-24 02:25] VITALS: BP 143/78; PULSE 86; RESP 14; O2SAT 95
== END 2023-10-24 02:25 | disposition home or self-care (01) ==
PROVIDERS: Emergency Provider Physician Assistant
DX: R10.2 Pelvic and perineal pain (principal); G89.29 Other chronic pain; I10 Essential (primary) hypertension; E03.9 Hypothyroidism, unspecified; Z85.820 Personal history of malignant melanoma of skin; F17.210 Nicotine dependence, cigarettes, uncomplicated
CPT/HCPCS: 36415; 80048; 80307; 81003; 81025; 85025; 96374; 96375; 99284; J2270; J2405

== ENCOUNTER 2023-12-23 21:43 | Emergency (ER) | payer MEDICARE, MEDICAID, SELFPAY ==
[2023-12-23 21:46] VITALS: BP 157/109; PULSE 117; RESP 30; TEMP 36.6; O2SAT 100
--- NOTE | 2023-12-23 22:48 | ED.GENADULT ---
HPI - General Adult General Chief complaint: Unspecified Stated complaint: Pelvis Pain Time Seen by Provider: 12/23/23 21:45 History of Present Illness HPI narrative: This is a 58-year-old female with history of chronic pain and floor dysfunction presenting exacerbation of chronic pain. Patient says that she has been having pelvic pain for the last 6 hours. She says it is feels like someone is stabbing a dagger into her vagina and twisting. She called an ambulance and was brought to hospital crawling on her back with her legs straight in the air. She is moaning continuously. Patient sees a pain specialist and has been prescribed 30 mg of morphine extended release 3 times daily with Percocet for breakthrough pain. Patient was last prescribed on December 02. She has gone through all of her pain medications and ran out 2 days ago. Patient has been in our ED for similar presentation in the past. Related Data Home Medications Medication Instructions Recorded Confirmed clopidogrel 75 mg tablet 05/02/21 11/20/23 rosuvastatin 20 mg tablet mg 05/02/21 11/20/23 albuterol sulfate 90 mcg/actuation inhalation 08/07/23 11/20/23 aerosol inhaler (Ventolin HFA) amlodipine 10 mg tablet 10 mg PO DAILY 08/07/23 11/20/23 empagliflozin 10 mg tablet 10 mg PO DAILY 08/07/23 11/20/23 (Jardiance) ezetimibe 10 mg tablet mg PO 08/07/23 11/20/23 oxybutynin chloride 10 mg mg PO 08/07/23 11/20/23 tablet,extended release 24 hr valacyclovir 1 gram tablet 1,000 mg PO DAILY 08/07/23 11/20/23 Allergies Allergy/AdvReac Type Severity Reaction Status Date / Time ibuprofen AdvReac Vomiting Verified 11/20/23 08:31 [facility] Past Medical History Medical History Anxiety Bowel obstruction Bronchitis COPD (chronic obstructive pulmonary disease) Depression H/O: HTN (hypertension) Hx of melanoma of skin Hypercholesteremia Hypothyroid Thoracic injuries disc compaction Surgical History Surgical History History of appendectomy History of spinal surgery (~2014) Hx of cardiac cath (~2019) with 2 stents placed. Hx of tubal ligation Family History Family History (Updated 11/20/23 @ 08:41 by Noel Da Silva MD) Mother Heart problem Diabetes mellitus Thyroid disorder Lung cancer Carcinoma of colon Father Diabetes mellitus Heart problem Cancer Thyroid disorder Grandparent Diabetes mellitus Grandparent Diabetes mellitus Other Carcinoma of colon Other No problems noted. Social History Social History Smoking packs per day: 1 Smoking cigarettes per day: 20.0 Smoking status: Current every day smoker Second hand tobacco smoke exposure: Yes Gender identity (if verbalized by the patient): Female Exam Narrative: APPEARANCE: Patient is rolling back and forth on the bed with her feet straight in the air. She is moaning and screaming help me. When you discuss pain medications with her she stops rolling and screaming and has a normal conversation with me. She then resumes screaming. Head: atraumatic. EYES: EOMI, NOSE: Atraumatic NECK: Trachea midline RESPIRATORY: No increased rate of breathing CARDIOVASCULAR: RRR, ABDOMINAL: Soft, patient screams whenever you touch her MUSCULOSKELETAl: No obvious deformities NEURO: Alert. Moving 4/4 extremities SKIN:: Warm, dry. Normal color PSYCHIATRIC: Normal affect Course Vital Signs Vital signs: Vital Signs Temperature 98 F 12/23/23 21:46 Pulse Rate 117 H 12/23/23 21:46 Respiratory Rate 30 H 12/23/23 21:46 Blood Pressure 157/109 H 12/23/23 21:46 Pulse Oximetry 100 12/23/23 21:46 Oxygen Delivery Room Air 12/23/23 21:46 Temperature 98 F 12/23/23 21:46 Pulse Rate 82 12/24/23 00:27 Respiratory Rate 18 12/24/23 00:27 Blood Pressure 144/96
[2023-12-23] MEDS: KETOROLAC 15 MG/ML VIAL (*BKC) IV PUSH (23:26)
[2023-12-24 00:27] VITALS: BP 144/96; PULSE 82; RESP 18; O2SAT 98
[2023-12-24] MEDS: HALOPERIDOL LACTATE 5 MG/ML VIAL IM (00:27)
== END 2023-12-24 00:30 | disposition home or self-care (01) ==
PROVIDERS: Emergency Provider Emergency Medicine; PCP Family Medicine Adolescent Medicine
DX: Z76.5 Malingerer [conscious simulation] (principal); F41.8 Other specified anxiety disorders; J44.9 Chronic obstructive pulmonary disease, unspecified; I10 Essential (primary) hypertension; Z85.820 Personal history of malignant melanoma of skin; E78.00 Pure hypercholesterolemia, unspecified; E03.9 Hypothyroidism, unspecified; F17.210 Nicotine dependence, cigarettes, uncomplicated
CPT/HCPCS: 96365; 96372; 96375; 99284; J1630; J1885

== ENCOUNTER 2023-12-23 21:43 | Emergency (ER) | payer MEDICARE, MEDICAID, SELFPAY ==
[2023-12-23 22:00] VITALS: BP 157/109; PULSE 117; RESP 25; TEMP 36.3; O2SAT 100
--- NOTE | 2023-12-27 07:08 | ED.GENADULT ---
HPI - General Adult General Chief complaint: Unspecified Stated complaint: pain Time Seen by Provider: 12/23/23 21:50 History of Present Illness HPI narrative: error chart Related Data Home Medications Medication Instructions Recorded Confirmed clopidogrel 75 mg tablet 05/02/21 11/20/23 rosuvastatin 20 mg tablet mg 05/02/21 11/20/23 albuterol sulfate 90 mcg/actuation inhalation 08/07/23 11/20/23 aerosol inhaler (Ventolin HFA) amlodipine 10 mg tablet 10 mg PO DAILY 08/07/23 11/20/23 empagliflozin 10 mg tablet 10 mg PO DAILY 08/07/23 11/20/23 (Jardiance) ezetimibe 10 mg tablet mg PO 08/07/23 11/20/23 oxybutynin chloride 10 mg mg PO 08/07/23 11/20/23 tablet,extended release 24 hr valacyclovir 1 gram tablet 1,000 mg PO DAILY 08/07/23 11/20/23 Allergies Allergy/AdvReac Type Severity Reaction Status Date / Time ibuprofen AdvReac Vomiting Verified 11/20/23 08:31 [facility] Past Medical History Medical History Anxiety Bowel obstruction Bronchitis COPD (chronic obstructive pulmonary disease) Depression H/O: HTN (hypertension) Hx of melanoma of skin Hypercholesteremia Hypothyroid Thoracic injuries disc compaction Surgical History Surgical History History of appendectomy History of spinal surgery (~2013) Hx of cardiac cath (~2018) with 2 stents placed. Hx of tubal ligation Family History Family History (Updated 11/20/23 @ 08:41 by Noel Da Silva MD) Mother Heart problem Diabetes mellitus Thyroid disorder Lung cancer Carcinoma of colon Father Diabetes mellitus Heart problem Cancer Thyroid disorder Grandparent Diabetes mellitus Grandparent Diabetes mellitus Other Carcinoma of colon Other No problems noted. Social History Social History Smoking packs per day: 1 Smoking cigarettes per day: 20.0 Smoking status: Current every day smoker Second hand tobacco smoke exposure: Yes Gender identity (if verbalized by the patient): Female Course Vital Signs Vital signs: Vital Signs Temperature 36.3 C L 12/23/23 22:00 Pulse Rate 117 H 12/23/23 22:00 Respiratory Rate 25 H 12/23/23 22:00 Blood Pressure 157/109 H 12/23/23 22:00 Pulse Oximetry 100 12/23/23 22:00 Oxygen Delivery Room Air 12/23/23 22:00 Temperature 36.3 C L 12/23/23 22:00 Pulse Rate 117 H 12/23/23 22:00 Respiratory Rate 25 H 12/23/23 22:00 Blood Pressure 157/109 H 12/23/23 22:00 Pulse Oximetry 100 12/23/23 22:00 Oxygen Delivery Room Air 12/23/23 22:00 Medical Decision Making Vital Signs Vital Signs: Vital Signs Temperature 36.3 C L 12/23/23 22:00 Pulse Rate 117 H 12/23/23 22:00 Respiratory Rate 25 H 12/23/23 22:00 Blood Pressure 157/109 H 12/23/23 22:00 Pulse Oximetry 100 12/23/23 22:00 Oxygen Delivery Room Air 12/23/23 22:00 Temperature 36.3 C L 12/23/23 22:00 Pulse Rate 117 H 12/23/23 22:00 Respiratory Rate 25 H 12/23/23 22:00 Blood Pressure 157/109 H 12/23/23 22:00 Pulse Oximetry 100 12/23/23 22:00 Oxygen Delivery Room Air 12/23/23 22:00 Discharge Plan Discharge Prescriptions: No Action Jardiance 10 mg tablet 10 mg PO DAILY amlodipine 10 mg tablet 10 mg PO DAILY valacyclovir 1 gram tablet 1,000 mg PO DAILY ezetimibe 10 mg tablet PO oxybutynin chloride 10 mg tablet extended release 24hr PO albuterol sulfate [Ventolin HFA] 90 mcg/actuation HFA aerosol inhaler inhalation pregabalin 75 mg capsule 75 mg PO BID Qty: 60 0RF clopidogrel 75 mg tablet rosuvastatin 20 mg tablet levothyroxine 200 mcg tablet 200 mcg PO DAILY Qty: 90 3RF morphine 30 mg tablet extended release 30 mg PO Q8H Qty: 90 0RF oxycodone-acetaminophen 10-325 mg t
--- NOTE | 2024-01-15 10:36 | ED.GENADULT ---
HPI - General Adult General Chief complaint: Unspecified Stated complaint: pain Time Seen by Provider: 12/23/23 21:50 Related Data Home Medications Medication Instructions Recorded Confirmed clopidogrel 75 mg tablet 05/02/21 11/20/23 rosuvastatin 20 mg tablet mg 05/02/21 11/20/23 albuterol sulfate 90 mcg/actuation inhalation 08/07/23 11/20/23 aerosol inhaler (Ventolin HFA) amlodipine 10 mg tablet 10 mg PO DAILY 08/07/23 11/20/23 empagliflozin 10 mg tablet 10 mg PO DAILY 08/07/23 11/20/23 (Jardiance) ezetimibe 10 mg tablet mg PO 08/07/23 11/20/23 oxybutynin chloride 10 mg mg PO 08/07/23 11/20/23 tablet,extended release 24 hr valacyclovir 1 gram tablet 1,000 mg PO DAILY 08/07/23 11/20/23 Allergies Allergy/AdvReac Type Severity Reaction Status Date / Time ibuprofen AdvReac Vomiting Verified 11/20/23 08:31 [facility] Past Medical History Medical History Anxiety Bowel obstruction Bronchitis COPD (chronic obstructive pulmonary disease) Depression H/O: HTN (hypertension) Hx of melanoma of skin Hypercholesteremia Hypothyroid Thoracic injuries disc compaction Surgical History Surgical History History of appendectomy History of spinal surgery (~2013) Hx of cardiac cath (~2018) with 2 stents placed. Hx of tubal ligation Family History Family History (Updated 11/20/23 @ 08:41 by Noel Da Silva MD) Mother Heart problem Diabetes mellitus Thyroid disorder Lung cancer Carcinoma of colon Father Diabetes mellitus Heart problem Cancer Thyroid disorder Grandparent Diabetes mellitus Grandparent Diabetes mellitus Other Carcinoma of colon Other No problems noted. Social History Social History Smoking packs per day: 1 Smoking cigarettes per day: 20.0 Smoking status: Current every day smoker Second hand tobacco smoke exposure: Yes Gender identity (if verbalized by the patient): Female Course Vital Signs Vital signs: Vital Signs Temperature 97.4 F L 12/23/23 22:00 Pulse Rate 117 H 12/23/23 22:00 Respiratory Rate 25 H 12/23/23 22:00 Blood Pressure 157/109 H 12/23/23 22:00 Pulse Oximetry 100 12/23/23 22:00 Oxygen Delivery Room Air 12/23/23 22:00 Temperature 97.4 F L 12/23/23 22:00 Pulse Rate 117 H 12/23/23 22:00 Respiratory Rate 25 H 12/23/23 22:00 Blood Pressure 157/109 H 12/23/23 22:00 Pulse Oximetry 100 12/23/23 22:00 Oxygen Delivery Room Air 12/23/23 22:00 Medical Decision Making Vital Signs Vital Signs: Vital Signs Temperature 97.4 F L 12/23/23 22:00 Pulse Rate 117 H 12/23/23 22:00 Respiratory Rate 25 H 12/23/23 22:00 Blood Pressure 157/109 H 12/23/23 22:00 Pulse Oximetry 100 12/23/23 22:00 Oxygen Delivery Room Air 12/23/23 22:00 Temperature 97.4 F L 12/23/23 22:00 Pulse Rate 117 H 12/23/23 22:00 Respiratory Rate 25 H 12/23/23 22:00 Blood Pressure 157/109 H 12/23/23 22:00 Pulse Oximetry 100 12/23/23 22:00 Oxygen Delivery Room Air 12/23/23 22:00 Discharge Plan Discharge Prescriptions: No Action Jardiance 10 mg tablet 10 mg PO DAILY amlodipine 10 mg tablet 10 mg PO DAILY valacyclovir 1 gram tablet 1,000 mg PO DAILY ezetimibe 10 mg tablet PO oxybutynin chloride 10 mg tablet extended release 24hr PO albuterol sulfate [Ventolin HFA] 90 mcg/actuation HFA aerosol inhaler inhalation pregabalin 75 mg capsule 75 mg PO BID Qty: 60 0RF clopidogrel 75 mg tablet rosuvastatin 20 mg tablet levothyroxine 200 mcg tablet 200 mcg PO DAILY Qty: 90 3RF morphine 30 mg tablet extended release 30 mg PO Q8H Qty: 90 0RF oxycodone-acetaminophen 10-325 mg tablet 1 tablet PO BID PRN (Reason: pain) Qty: 60 0RF
== END 2023-12-24 02:33 | disposition home or self-care (01) ==
PROVIDERS: Emergency Provider Emergency Medicine; PCP Family Medicine Adolescent Medicine
DX: Z76.5 Malingerer [conscious simulation] (principal); J44.9 Chronic obstructive pulmonary disease, unspecified; I10 Essential (primary) hypertension; E78.00 Pure hypercholesterolemia, unspecified; E03.9 Hypothyroidism, unspecified; G89.29 Other chronic pain; F17.210 Nicotine dependence, cigarettes, uncomplicated; Z95.5 Presence of coronary angioplasty implant and graft; Z85.820 Personal history of malignant melanoma of skin; Z79.899 Other long term (current) drug therapy; Z79.01 Long term (current) use of anticoagulants; Z79.84 Long term (current) use of oral hypoglycemic drugs; Z79.891 Long term (current) use of opiate analgesic
CPT/HCPCS: 99281

== ENCOUNTER 2024-08-21 14:13 | Outpatient (CLI) | payer MEDICARE, MEDICAID, SELFPAY ==
[2024-08-21 15:06] LABS: Alanine Aminotransferase 12 U/L (6-35); Albumin Level 4.1 g/dL (3.5-5.1); Alkaline Phosphatase 81 U/L (38-126); Anion Gap 5 mmol/L (4-12); Aspartate Amino Transferase 20 U/L (14-36); Bilirubin,Total 0.6 mg/dL (0.2-1.3); Blood Urea Nitrogen 10 mg/dL (7-17); Calcium 9.2 mg/dL (8.4-10.2); Carbon Dioxide 27 mmol/L (22-30); Chloride 101 mmol/L (98-107); Cholesterol 179 mg/dL (0-200); Estimated Glomerular Filt Rate > 60; Glucose 87 mg/dL (65-110); HDL Direct 59 mg/dL; Potassium 4.3 mmol/L (3.4-5.0); Sodium 133 mmol/L (137-145); Triglycerides 113 mg/dL (<150)
[2024-08-21 15:16] LABS: LDL Cholesterol Direct 86 mg/dL
--- OUTSIDE RECORDS SUMMARY | 2024-08-22 14:19 | XMS_ITS | Data Portability ---
Author Organization [facility] Spacious, Main Office Address [address] [place] [address] Care Team Providers Care Research Greenhouse Supervisor Name Role Phone MILES MAST Primary Care Provider MILES MAST Referring Provider Assessment Encounter Date Assessment Date Assessment LastModified by Organization Details LastModified Time 07/20/2022 07/20/2022 Impression: Patient has pain that seems to radiate from her sacrum to her pubis associated with this she has pain in her vagina evaluation of which I will defer to her rating specialist, and severe tenderness at the top of the symphysis pubis. Clinically her description of pain and her exquisite tenderness at the right SI joint and at the symphysis pubis but suggests sacroiliac joint dysfunction and overload pain at the symphysis pubis as result. The absence of any bone edema at these joints or periarticular inflammatory signal at either of these 2 joints however is perplexing. Possibility her pain is referred is another consideration but referred pain does not cause extreme tenderness at the site to which the pain is referred. She has no neurologic abnormality in the lower extremities that I can elicit today. I recommended that she continue pursuing gynecologic evaluation and that she bring her MRI on the disc and the report the MRI with her for the rating specialist's review. She may have 2 issues 1 is musculoskeletal issue causing pain from her sacrum to her pubis as well as a gynecologic issue causing pain in her lower abdomen and per her report pain in the vagina area. The MRI scan fact of the rules out bony neoplasm in the pelvic area. I would recommend trying a diagnostic injection into the right sacroiliac joint under fluoroscopic guidance by the radiologist. I have given her pain scale diary sheets to fill out the appropriate times. Will have report on affects on her pain at the right SI joint as well as the symphysis pubis area. I will see her back in 4 weeks assess her progress with this. If she seems to get relief, I think it would be appropriate to prescribe physical therapy for back stabilization exercises and SI joint stabilization exercises. 100 minutes were spent in total care this patient with more than half of this time spent in [id number] care. [email or web address] Not available 07/22/2022 15:08:36 Plan of Treatment Reminders Order Date Submit Date Provider Last Modified By Organization Details Last Modified Time Details Appointments None record ed. Lab None record ed. Referral None record ed. Procedures None record ed. Surgeries None record ed. Imaging None record ed. Medication Orders None record ed. Patient TargetsNo targets recorded. Patient InstructionsNo instructions recorded. Reason for Referral None Reported. Results Created Date Observation Date Name Description Value Unit Range Abnormal Flag Note LastModifiedBy Organization Detail LastModifiedTime 04/17/20 22 04/17/2022 MRI, pelvi s, w/o contr ast [facility] [address] [place] [place] [address] Juanita t Name: JE CHILDSNE Justin Access ion #: [id number] Sex: F : 1965 3 Locati on: RAD Attend ing Physic louis: ESTEBAN GARCIA Orderi julio Physic louis: ESTEBAN GARCIA Exam Date: 2021 2:58 PM Exam Name: MRI PELVIS WO Admitt ing Diagno sis(es ): RADIOL OGY REPORT - FINAL EXAM: MRI PELVIS WO HISTOR Y: pelvic pain perine al pain COMPAR HARESH: Radiog raph 2021 TECHNI QUE: Multip lanar multis equenc e noncon trast MR images of the pelvis to includ e the right left hip was perfor med. FINDIN GS: Bones: No eviden ce of a fractu re malali gnment avascu lar necros is or destru ctive proces s bilate rally. Bilate ral femoro acetab ular joint osteoa rthrit ic residu als noted. Correl ate for sympto ms of femoro acetab ular imping ement Page 1 of 2 [facility] Patien t Name: TASHI CHILDS Access ion #: [id number] Sex: F : 1965 3 Exam Date: 2021 2:58 PM Exam Name: MRI PELVIS WO Admitt ing Diagno sis(es ): Cartil age: Preser tana Labrum : Eviden ce of bilate ral degene rative tears Joint space: Bilate ral osteoa rthrit ic residu als noted. Bursa: No eviden ce of bursit is. 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 Muscle s: Grossl y intact Soft tissue s: No eviden ce of a hernia . IMPRES CLARISA: See above Create d and electr onical ly signed by: Robert atkins MD Signed Date: 2021 4:51 PM (CT) Dictat ed by: Robetr atkins MD DD: 2021 4:51 PM (CT) DT: 2021 4:51 PM (CT) Page 2 of 2 [id number] [facility] (Imaging) [address] [place], [address], 06/20/2022 07:37:29 09/06/19 23 09/05/2022 joint aspir ation (PROC ) No observ ation record ed. [email or web address] [address], [place], [address], 09/05/2022 16:48:36 Result Notes None recorded. Problems Name Problem SNOMED Code Status Onset Date Resolution Date Notes Provider Name and Address Organization Details Recorded Time Pain of bilateral hip joints 6857386739892 9100 Active 2021 Not Available [facility] 3 07:31:57 Inflammati on of pubic symphysis 836593843 Active 2021 Not Available [facility] 3 07:31:58 Pain in pelvis 75663462 Active 2022 BALJIT Bryant, [place] - [facility] [employer] [facility] 3 11:12:43 Problem Notes None recorded. Procedures Surgical History Date Name Laterality Status Provider Name and Address Organization Details Recorded Time Appendectomy completed Not Available [facility]/20[facility] 07:27:19 Back completed Not Available [facility] 04/2022 07:27:19 Imaging Results Imaging Date Name Status LastModified by Organiz ation Details LastModified Time 04/17/2022 MRI, pelvis, w/o contrast completed [id number] [facility] (Imaging) [address] [place], [address], 06/20/2022 07:37:29 09/05/2022 joint aspiration (PROC) completed [address] [place] [address], [address], 09/05/2022 16:48:36 Procedure Notes None recorded. Medical Equipment None Reported. Allergies Allergen ID Allergen Name Allergen Category Reaction Reaction Severity Criticality Documentation Date Start Date Code Code System Note Provider Name and Address Organization Details Recorded Time 69258 ibuprofen medicatio n Not available Not available Not available 06/20/2022 5640 RxNorm Not Available [facility] 07:37:24 Medications Name Sig Start Date Stop Date Status Note LastModified by Organization Details LastModified Time levothyroxi ne 175 mcg tablet 07/20 completed Not Available Not Available Not Available levothyroxi ne 137 mcg tablet TAKE 1 TABLET BY MOUTH EVERY DAY DIRECTED 07/20 completed Not Available Not Available Not Available azithromyci n 250 mg tablet active Not Available Not Available Not Available alprazolam 1 mg tablet 07/20 completed Not Available Not Available Not Available valacyclovi r 1 gram tablet TAKE 1 TABLET BY MOUTH EVERY DAY DIRECTED active Not Available Not Available No t Available diclofenac ER 100 mg tablet,exte nded release 24 hr TAKE 1 TABLET BY MOUTH DAILY NEEDED active Not Available Not Available No t Available hydrocodone 5 mg-acetamin ophen 325 mg tablet TAKE 1 TABLET BY MOUTH EVERY 8 HOURS NEEDED FOR PAIN 07/20 completed Not Available Not Available Not Available bacitracin 500 unit/gram eye ointment 04/10 completed Not Available Not Available Not Available prednisone 20 mg tablet 07/20 completed Not Available Not Available Not Available permethrin 5 % topical cream 07/20 completed Not Available Not Available Not Available metronidazo le 500 mg tablet TAKE 1 TABLET BY MOUTH TWICE DAILY FOR 14 DAYS DIRECTED 07/20 completed Not Available Not Available Not Available clopidogrel 75 mg tablet TAKE 1 TABLET BY MOUTH ONCE DAILY active Not Available Not Available No t Available acyclovir 400 mg tablet 07/20 completed Not Available Not Available Not Available butalbital- acetaminoph en-caffeine 50 mg-325 mg-40 mg tablet TAKE 1 TABLET BY MOUTH DAILY NEEDED FOR HEADACHE OR MIGRAINE active Not Available Not Available No t Available trifluridin e 1 % eye drops 07/20 completed Not Available Not Available Not Available oxycodone-a cetaminophe n 5 mg-325 mg tablet TAKE 1 TO 2 TABLETS BY MOUTH THREE TIMES DAILY NEEDED FOR 14 DAYS 07/20 completed Not Available Not Available Not Available fentanyl 100 mcg/hr transdermal patch 07/20 completed Not Available Not Available Not Available oxycodone-a cetaminophe n 10 mg-325 mg tablet 07/20 completed Not Available Not Available Not Available trazodone 100 mg tablet 07/20 completed Not Available Not Available Not Available baclofen 10 mg tablet TAKE 1 TABLET BY MOUTH THREE TIMES DAILY NEEDED 07/20 completed Not Available Not Available Not Available amlodipine 10 mg tablet TAKE 1 TABLET BY MOUTH EVERY DAY active Not Available Not Available No t Available benzonatate 100 mg capsule 07/20 completed Not Available Not Available Not Available doxycycline monohydrate 100 mg capsule TAKE 1 CAPSULE BY MOUTH TWICE DAILY WITH MEALS FOR 14 DAYS 07/20 completed Not Available Not Available Not Available hydrocodone 7.5 mg-acetamin ophen 325 mg tablet 07/20 completed Not Available Not Available Not Available nystatin 100,000 unit/gram topical cream APPLY TOPICALLY TO THE AFFECTED AREA TWICE DAILY FOR 7 DAYS active Not Available Not Available No t Available levothyroxi ne 150 mcg tablet TAKE 1 TABLET BY MOUTH ONCE DAILY 07/20 completed Not Available Not Available Not Available diazepam 10 mg tablet TAKE 1 TABLET BY MOUTH THREE TIMES DAILY active Not Available Not Available No t Available levofloxaci n 500 mg tablet 07/20 completed Not Available Not Available Not Available oxycodone-a cetaminophe n 7.5 mg-325 mg tablet TAKE 1 TABLET BY MOUTH FOUR TIMES DAILY active Not Available Not Available No t Available estradiol 0.01% (0.1 mg/gram) vaginal cream START WITH 1 GRAM APPLICATI ON VAGINALLY NIGHTLY FOR 2 WEEKS THEN INSERT 1 GRAM VAGINALLY THREE TIMES A WEEK AT BEDTIME active Not Available Not Available No t Available methylpredn isolone 4 mg tablets in a dose pack 07/20 completed Not Available Not Available Not Available Ventolin HFA 90 mcg/actuati on aerosol inhaler INHALE 2 PUFFS BY MOUTH EVERY 4 HOURS NEEDED active Not Available Not Available No t Available ezetimibe 10 mg tablet TAKE 1 TABLET BY MOUTH ONCE DAILY active Not Available Not Available No t Available rosuvastati n 20 mg tablet TAKE 1 TABLET BY MOUTH DAILY active Not Available Not Available No t Available topiramate 50 mg tablet TAKE 1 TABLET BY MOUTH TWICE DAILY 07/20 completed Not Available Not Available Not Available sumatriptan 4 mg/0.5 mL subcutaneou s pen injector 07/20 completed Not Available Not Available Not Available calcium 600 mg (as carbonate)- vitamin D3 10 mcg (400 unit) tablet TAKE 2 TABLETS BY MOUTH EVERY DAY AROUND THE CLOCK active Not Available Not Available No t Available fenofibrate 54 mg tablet TAKE 1 TABLET BY MOUTH DAILY 07/20 completed Not Available Not Available Not Available Dialyvite Vitamin D3 Max 1,250 mcg (50,000 unit) tablet TAKE 1 TABLET BY MOUTH WEEKLY active Not Available Not Available No t Available Linzess 145 mcg capsule active Not Available Not Available Not Available Jardiance 10 mg tablet TAKE 1 TABLET BY MOUTH ONCE DAILY active Not Available Not Available No t Available naloxone 4 mg/actuatio n nasal spray CALL 911. SPR CONTENTS OF ONE SPRAYER (0.1ML) INTO ONE NOSTRIL. REPEAT IN 2-3 MIN IF SYMPTOMS OF OPIOID EMERGENCY PERSIST, ALTERNATE NOSTRILS active Not Available Not Available No t Available Vitals Date Recorded Body mass index (BMI) Body height Body weight Provider Name and Address Organization Details Last Updated DateTime 04/10/2022 27.4 kg/m2 167.64 cm 65211.7 g Not Available [facility] 06/20/2022 07:30:53 Date Recorded Body height Provider Name an d Address Organization Details Last Updated DateTime 07/20/2022 167.64 cm Glendy BALJIT Nixon [place] [facility] 07/20/2022 11:08:17 Social History Question Answer Notes LastModified by Organizat ion Details LastModified Time Tobacco Smoking Status Current Every Day Smoker Not Available [facility] 06/20/2022 07:27:16 What Is Your Level Of Alcohol Consumption? None [id number] Information not available 06/20/2022 How Much Tobacco Do You Smoke? 1 PPD [id number] 26 Information not available 06/20/2022 How Many Years Have You Smoked Tobacco? 30 [id number] Information not available 06/20/2022 Sex: Unknown Functional Status None recorded. Mental Status None recorded. Family History Relationship Description Onset Age of this Age Resolved Age Notes LastModified by Organization Details LastModified Time Father Heart disease [id number] Not available 06/20/2022 07:27:21 Father Hypertensive disorder [id number] Not available 06/20/2022 07:27:21 Mother Family history of malignant neoplasm [id number] Not available 06/20/2022 07:27:21 Mother Hypertensive disorder [id number] Not available 06/20/2022 07:27:21 Mother Diabetes mellitus [id number] Not available 06/20/2022 07:27:21 Medical History Condition Response ARTHRITIS Y USE OF BLOOD THINNERS Y COPD Y Gynecological HistoryNo gynecological history recorded. Obstetrics History GPAL:G 0 P 0 0 0 0 Past Encounters Encounter ID Performer Location Encounter Start Date Encounter Closed Date Diagnosis/Indication Diagnosis SNOMED-CT Code Diagnosis ICD10 Code Diagnosis Note [id number] Esteban Rayo MD [facility] [address] [place] [address] 04/10/2022 00:00:00 04/10/2022 10:59:44 [id number] Jama Jose MD [facility] [address] [place] [address] 07/20/2022 11:04:58 07/23/2022 10:11:01 Inflammation of pubic symphysis 141442305 M86.8X8 Pain in pelvis 20880607 R10.2 Health Concerns Section Related Observation LastModified by Organization Detai ls LastModified Time None Recorded Concern Status LastModified by Organization Details LastModified Time None Recorded Advance Directives Directive None Recorded Payers Encounter Date Sequence Insurance Name Policy Number Policy [place] Covered Member ID [place] Member ID Guarantor Name 07/20/2022 1 [place] Tashi Castaneda [id number] Tashi Castaneda 07/20/2022 2 [place] WHEN MEDICARE OR MEDICARE REPLACEMENT PRIMARY) Tashi Castaneda [id number] Tashi Castaneda Notes Date Note Type Note Provider Name and Address Organization Details Recorded Time 07/20/2022 text/html This patient is a 56-year-old female who is referred by Dr. Mast for a 2nd opinion regarding severe pain in her pubic area and also sides of her hips and lower back. She states that at night when she is in bed she feels the pain radiate from her tailbone straight through to her pubis. When she is walking, it feels like she has 50 lb saddle bags resting on her buttocks. She cannot tolerate laying on the right side which causes pain in the lateral aspect of the right hip. She started noticing these symptoms after she had weaned down from high dose narcotics to 5 mg Percocets 4 times a day. Because her pain is been severe she was increased to 7.5 mg Percocets 4 times a day. Prior to that she was taking fentanyl patch and Percocets. she was on these medications for back and bilateral leg pain since 2004. She was noted to have spinal cord compression in the thoracic spine in 2004 and she had surgery posterior approach to the thoracic spine by Dr. Hartmann to remove discs pressing on the spinal cord. She has also been referred to Dr. Saavedra the OB Gyne physician. Patient reports that she has pain in the lower abdomen centrally and also pain in her vagina and cannot tolerate intercourse because of this. She has been going to physical therapy for pelvic floor strengthening exercises on the premise that her pain is related to pelvic floor muscular weakness and she is being referred to another Ob Gyne specialist by Dr. Saavedra who specializes in advanced diagnosis and treatment modalities for pelvic floor problems. She is managed by a pain management doctor in [place] Dr. Bojorquez. x-rays of both hips and AP pelvis from 05/22/2021 showed minimal degenerative changes in both hips with subtle hypertrophic change of the superolateral acetabular rim bilaterally and tiny inferior posterior humeral head osteophyte on the frog-leg lateral views bilaterally without joint space narrowing. She had MRI scan of her pelvis on 04/17/2022 which I reviewed. 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 The MRI scan of her pelvis is otherwise unremarkable. She has no edema signal within the sacroiliac joints or symphysis pubis no bone marrow signal abnormality in the bony structures. No effusion in either hip. No evidence of abductor tearing or bursal inflammation. I recommended that she take a copy of the CD images to her rating specialist for him to study the pelvic floor soft tissues which might show some abnormality that I would not be knowledgeable to determine. She reports also pain in the proximal thighs that is mild 1 or 2/10. She smokes 1 pack of cigarettes per day this smoked for 30 years. Her thoracic spine surgery was on 12/26/2004. She has had coronary artery stents placed in 2019 and another stent in her coronary artery was placed earlier this she month. I advised her that it would certainly be best for her to quit smoking. Her medications include Plavix levo thyroxine seen estradiol vaginal cream vitamins calcium plus D migraine medication azithromycin aloe psych lobe air Ventolin inhaler rosuvastatin. She had MRI scan of her cervical spine thoracic spine and lumbar spine in February of 2021. I reviewed the images as well as the radiologist's report. MRI scan of cervical spine showed decreased T2 disc signal at all levels but no evidence of disc protrusion or central or foraminal spinal stenosis. Lumbar spine showed mild posterior disc bulge mild facet arthropathy at L4-5 and no other abnormalities. Report of the thoracic spine MRI scan simply said no fracture listhesis coli 0 CIS and there was multilevel degenerative changes no acute process. On my review of the images, there is a 2 mm diameter high intensity area in the center of the thoracic spinal cord posterior to T4-T8 of uncertain significance. There appears to be severe degenerative disc disease at levels that I will call T6 and T7 with Small posterior surface of the vertebral body bone formation at the midline slightly to the left at what I would consider probably T6 and there is slight indentation of the ventral spinal cord at that level just to the left of the midline but without canal stenosis at that level. These findings might be residual from previous thoracic surgery that she had in 2005. I do not see any evidence of active ongoing spinal cord compression however. Jama Jose MD [address] [place] [address], [place], [address], [place] [facility] 07/23/2022 19:25:08 OBGyn Episode No OBEpisode recorded.
--- OUTSIDE RECORDS SUMMARY | 2024-08-22 14:20 | XMS_ITS | Encounter Summary ---
Author Organization [facility] Health Address [address] [place] [address] Care Team Providers Care Tool Marker Name Role Phone Angel Alcaraz Primary Care Provider Noel Matthews MD Primary Care Provider + Reason for Visit * Reason Onset Date Comments Question 01/16/2023 Encounter Details Date Type Department Care Team (Late st Contact Info) Description 01/16/2023 Telephone [facility] - Centralized Scheduling [facility] [place] [address] Radha Edmond MD Question Social History Tobacco Use Types Packs/Day Years Used Date Smoking Tobacco: Every Day Cigarettes Smokeless Tobacco: Never Alcohol Use Standard Drinks/Week Comments Not Currently 0 (1 standard drink = 0.6 oz pur e alcohol) Comments Unknown Sex and Gender Information Value Date Recorded Sex Assigned at Not on file 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 Pt is not pleased with availability and would like to speak with the office. * Telephone Encounter - Marcie Martin RN - 01/16/2023 2:57 PM CDT RN returned call to pt.RN left message that Dr. Edmond is no longer with our office but her patients are seeing Dr.Krisit Pedro for chronic pelvic pain and if she would like can schedule new appt withher If patient calls back please offer this first available appt 06/26/23@2:30pm * Telephone Encounter - Yocasta Marinelli - 01/16/2023 2:48 PM CDT Pt called in with concerns regarding her care. Pt was supposed to have follow up with provider but not for endometriosis. Pt can be reached at [phone]. 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
--- OUTSIDE RECORDS SUMMARY | 2024-08-22 14:20 | XMS_ITS | Data Portability ---
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 follow up of pelvic pain. She has been doing pelvic PT since July and just stopped a month ago but has still been doing the dilators at home 3x/week. SHe restarted her estrace cream in August. Her pelvic pain seems to just not be getting any better and she is not sure if it is related to her low back and hip pain. Sh recently had an XR for this that showed oste-something but she has not had follow up since the XR. Jane Luis MD [address], [place], [address], [facility] 12/25/2021 17:09:20 07/04/19 23 text/htm l 56yoPresents for evaluation of pelvic painPostmenopausalPelvic pain present for the past 1-2 years. Has noticed the pain increase more recently since she is currently on a lower dose of pain medication for management of her chronic back and hip pain per patient.Bilateral lower cramping sensation, comes and goes. Happens at random times, worse when she is driving. Feels like she constantly has a pressure sensation. Pain with IC, pain with deep penetration. Hurts in most positions.She previously did 3 months of PFPT with no improvement. Uses dilators at home and this has not helped.SA with steady male partnerDenies any urinary symptomsNormal bowel movementsNo vaginal d/c, itching, odors, n/v/f, or flank pains TUYET Kearney [address], [place], [address], [facility] 07/03/2022 18:06:04 07/17/19 23 text/htm l this patient is a 56-year-old female presents for follow-up on pelvic pain and dyspareunia. We spent 40 minutes [id number]. More than 50% was counseling. Talked about dyspareunia and pelvic pain. Talked about her previous treatments in diagnoses. Talked about previous use of vaginal dilators and estrogen. Heart talked about who is she has seen in walk-in care she has been given up to this point. She has severe pain with intercourse. She has pain at the opening of the vagina and within the vagina the services are tender and deep penetration is severely painful.She was examined. Her paravaginal muscles are extremely tight and painful. They are very tender. A deeper digital exam produces pain. There is tenderness with deep palpation. The exam is exquisitely tender. There is pronounced muscle tone around the vagina.treatment options with the patient. Agreed to refer to pelvic pain specialist. She needs advanced treatment. She has failed initial therapy.in the immediate time frame we agreed to a trial of vaginal Valium to reduce muscle spasm in that area. Will have some efficacy and certain patients. Aware of her chronic pain management and this should not interfere with her pain management routine. Patient understands that this is strictly a vaginal medication. José Miguel Saavedra MD [address], [place], [address], [facility] 07/19/2022 12:59:41 04/02/20 23 text/htm l Annual GYNReported bypatient.History:no gynecologic complaints Urinary symptoms:No hematuria;Urge incontinence Vulva:No genital lesion Vagina:Normal vaginal discharge Breast:No breast pain; No breast lump Sexual complaints:Pain during intercourse Menopausal Symptoms:Normal vaginal lubrication;Hot flashes Psychological symptoms:Depression;Anxiety; untreated - declined Preventive measures:Encourage self breast examination José Miguel Saavedra MD [address], [place], [address], [facility] 04/02/2023 17:12:00 OBGyn Episode Ob Episode Information Episode Created Date Number of Fetuses Patient Bloodtype Patient rh Status Prepregnancy Weight lbs Domestic Partner Domestic Partner Phone Father Name Wireless Technician Status 07/08/19 22 1 CLOSED Fetus Data First Name Last Name Admitted to NICU Weight (g) Sex Living Outcome Pediatric Complications Fetus ID Race Codes Race Delivery Type 3089.86 8704 M Full Term [id number] Vaginal Delivery Lázaro Calculation Initial Lázaro Date Initial Exam Date Initial Exam Provider Initial Ultrasound Date Last Menstrual Period Date Ultra Sound Weeks Gestation 0 Eighteen To Twenty Week Lázaro Update Ultra Sound Date Fundal Height At Umbil Quickening Date Ultra Sound Latest Weeks Gestation Final Lázaro Confirmed By Final Lázaro Confirmed Date Final Lázaro Date Ultra Sound Latest Days Gestation 0 0 Menstrual History Last Menstrual Date Menses Monthly On Bcp Conception Prior Menses Frequency Hcg Plus Date Menarche Onset Age Delivery Information Delivery Date Delivery Type Labor Anesthesia Weeks Gestation Incision Type Labor Labor Length Hrs Delivered By Post Complications Tubal Sterilization Discharge Date Comments 4 40 Discharge Information Feeding Method Contraceptive Method Maternal HG B and HCT Levels Ob Episode Information Episode Created Date Number of Fetuses Patient Bloodtype Patient rh Status Prepregnancy Weight lbs Domestic Partner Domestic Partner Phone Father Name Wireless Technician Status 07/08/19 22 1 CLOSED Fetus Data First Name Last Name Admitted to NICU Weight (g) Sex Living Outcome Pediatric Complications Fetus ID Race Codes Race Delivery Type 3515.33 8 M Full Term [id number] Vaginal Delivery Lázaro Calculation Initial Lázaro Date Initial Exam Date Initial Exam Provider Initial Ultrasound Date Last Menstrual Period Date Ultra Sound Weeks Gestation 0 Eighteen To Twenty Week Lázaro Update Ultra Sound Date Fundal Height At Umbil Quickening Date Ultra Sound Latest Weeks Gestation Final Lázaro Confirmed By Final Lázaro Confirmed Date Final Lázaro Date Ultra Sound Latest Days Gestation 0 0 Menstrual History Last Menstrual Date Menses Monthly On Bcp Conception Prior Menses Frequency Hcg Plus Date Menarche Onset Age Delivery Information Delivery Date Delivery Type Labor Anesthesia Weeks Gestation Incision Type Labor Labor Length Hrs Delivered By Post Complications Tubal Sterilization Discharge Date Comments 8 40 forceps Discharge Information Feeding Method Contraceptive Method Maternal HG B and HCT Levels
--- OUTSIDE RECORDS SUMMARY | 2024-08-22 14:20 | XMS_ITS | Clinical Summary ---
Author Organization [facility] Address [address] [place] [address] Care Team Providers Care Garage Supervisor Name Role Phone Noel Da Silva MD Primary Care Provider + Source Comments [facility],non-owned Affiliates and Associated Physician Practices is amultiple site organization consisting of ambulatory clinics and hospital sitesin [place], [place], [place] and [place]. This disclosure is being madepursuant to the Care Everywhere program and may not contain all information available regarding this patient. Last updated 18.[facility] Allergies Active Allergy Reactions Criticality Noted Date Comments Ibuprofen Swelling Low 12/03/2012 Medications * Be aware that medications may not be up to date on this document. Alwaysverify current medications with the patient. amLODIPine (Norvasc) 10 MG tablet amlodipine 10 mg tablet TAKE 1 TABLET BY MOUTH EVERY DAY 3 Active clopidogrel (plaVIX) 75 MG tablet clopidogrel 75 mg tablet 2 Active empagliflozin (Jardiance) 10 MG tablet Jardiance 10 mg tablet TAKE 1 TABLET BY MOUTH ONCE DAILY 3 Active estradiol (Estrace) 0.1 MG/GM vaginal cream estradiol 0.01% (0.1 mg/gram) vaginal cream START WITH 1 GRAM APPLICATION VAGINALLY NIGHTLY FOR 2 WEEKS THEN INSERT 1 GRAM VAGINALLY THREE TIMES A WEEK AT BEDTIME Active levothyroxine (Synthroid) 150 MCG tablet 3 Active oxyCODONE-aceta minophen (Percocet) 7.5-325 MG tablet oxycodone-acetam inophen 7.5 mg-325 mg tablet TAKE 1 TABLET BY MOUTH FOUR TIMES DAILY Active rosuvastatin (Crestor) 20 MG tablet rosuvastatin 20 mg tablet TAKE 1 TABLET BY MOUTH DAILY Active valACYclovir (Valtrex) 1 GM tablet valacyclovir 1 gram tablet TAKE 1 TABLET BY MOUTH EVERY DAY DIRECTED Active meloxicam (Mobic) 7.5 MG tablet Take 1 (one) tablet by mouth once daily 30 tablet 11 4 Active Other Insert 1 suppository into the vagina every 12 hours as needed Valium/Baclofen 5/4 mg; place one suppository in the vagina as needed for pain, up to every 12 hours 5 Each 4 Active acetaminophen (Tylenol) 500 MG capsule Take 2 (two) capsules by mouth Every 6 Hours (03,09,15,21) 120 capsule 1 4 Active docusate sodium (Colace) 100 MG capsule Take 1 (one) capsule by mouth 2 times daily 60 capsule 1 4 Active oxyCODONE, immediate release, (Roxicodone) 5 MG tabletIndicatio ns:Post-op pain Take 1 (one) tablet by mouth every 6 hours as needed for Pain 10 tablet 4 Active tiZANidine (Zanaflex) 2 MG tablet TAKE 1 TO 2 TABLETS BY MOUTH EVERY 8 HOURS NEEDED 20 tablet 3 4 Active Active Problems No known active problems Encounters Date Type Department Care Team Description 08/06/2024 Travel from Last 3 Months Social History Tobacco Use Types Packs/Day Years Used Date Smoking Tobacco: Every Day Cigarettes Smokeless Tobacco: Never Tobacco Cessation:Ready to Q uit: Not Asked; Counseling Given: Not Answered Alcohol Use Standard Drinks/Week Comments Not Currently 0 (1 standard drink = 0.6 oz pur e alcohol) AUDIT-C Answer Date Recorded Q1: How often do you have a drink containing alcohol? Never 10/03/2023 Q2: How many drinks containi ng alcohol do you have on a typical day when you are drinking? Patient does not drink Q3: How often do you have si x or more drinks on one occasion? 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 Gender Identity Not on file Sexual Orientation Not on file Last Filed Vital Signs Vital Sign Reading Time Taken Comments Blood Pressure 139/83 10/03/2023 1:50 PM CDT Pulse 65 10/03/2023 1:50 PM CDT Temperature 36.3 C (97.3 F) 10/03/2023 1:19 PM CDT Respiratory Rate 17 10/03/2023 1:50 PM CDT Oxygen Saturation 99% 10/03/2023 1:50 PM CDT Inhaled Oxygen Concentration - - Weight 64.9 kg (143 lb) 08/28/2023 12:53 PM CDT Height 167.6 cm (5' 6 ) 08/28/2023 12:53 PM CDT Body Mass Index 23.08 08/28/2023 12:53 PM CDT Plan of Treatment Upcoming Encounters Date Type Department Care Team (Late st Contact Info) Description 10/09/2024 3:00 PM CDT Office Visit [facility] - SALES 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 [address] [place] [address] Fe Pdero MD [address] [place] [address] Health Maintenance Due Date Last Done Comments COLOGUARD (AGES 45-75) - COLON CA SCREENING 1965 COLON MONITORING 1965 COLONOSCOPY - COLON CA SCREENING 1965 CT COLONOGRAPHY - COLON CA SCREENING 1965 Colorectal Cancer Screening 1965 FIT - COLON CA SCREENING 1965 FLEX SIG - COLON CA SCREENING 1965 MAMMOGRAM 1965 MEDICARE AWV 12 MONTHS 1965 HIV SCREENING 1980 HEPATITIS C SCREENING 11/23/1983 DTAP/TDAP/TD VACCINES (1 - Tdap) 1984 HEPATITIS B VACCINE (1 of 3 - 19+ 3-dose series) 1984 PNEUMOCOCCAL VACCINE 50+ (1 of 2 - PCV) 1984 ZOSTER VACCINE (1 of 2) 11/28/2015 COVID-19 VACCINE ( season) 2023 12/06/2021, 02/13/2021, 07/16/2020, Additional history exists DEPRESSION SCREENING 04/22/2024 INFLUENZA VACCINE (Season Ended) 2024 02/13/2021, 01/30/2020, 02/02/2019, Additional history exists PAP SMEAR 04/02/2026 04/02/2023 HIB VACCINE Aged Out No longer eligi ble based on patient's age to complete this topic HPV VACCINE Aged Out No longer eligi ble based on patient's age to complete this topic MENINGOCOCCAL (Group B) VACCINE SHARED DECISION-MAKING Aged Out No longer eligible based on patient's age to complete this topic MENINGOCOCCAL GROUPS A/C/Y/W VACCINE Aged Out No longer eligible based on patient's age to complete this topic Insurance MEDICARE MEDICAID - OUT OF [facility] MEDICARE MEDICAID - [place] Care Teams Garage Supervisor Relationship Specialty Start Date End Date Noel Da Silva MD [address] [address] PCP - General Family Medicine 08/28/23
--- OUTSIDE RECORDS SUMMARY | 2024-08-22 14:20 | XMS_ITS | Encounter Summary ---
Author Organization [facility] Address [address] [place] [address] Care Team Providers Care Insurance Claims Assistant Name Role Phone Noel Da Silva MD Primary Care Provider + Reason for Visit * Reason Onset Date Comments Pain 10/07/2023 Encounter Details Date Type Department Care Team (Late Contact Info) Description 10/07/2023 Telephone [facility] - CASE MANAGEMENT DIRECTOR [address] [facility] [address] [place] [address] Fe Pedro MD [address] [facility] [address] [place] [address] Pain Social History Tobacco Use Types Packs/Day Years [...] on file Legal Sex Female 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 Pedro. Dr. Pedro will send in oxycodone for pain relief. New order for tizanidine 2mg 1-2 tabs every 8 hours as needed but should be her base for pain management RN updated and sent. Dr. Pedro wants to know if pt had recent kidney function tested. Is she taking Morphine, she is to also check with pain management about pain and can take the tylenol as ordered. RN called pt. Pt said her kidneys and liver were just checked by PCP and fine. Per pt her reaction to ibuprofen my hands and face swell and I puke She cannot pick up man morphine until 10/11/23. RN wentover plan for pt that Dr. Pedro sent in oxycodone for her. She wants her take the tizanidine at leastevery 8 hours as a base for pain regimen and add in oxycodone for breakthrough pain. Pt aware these cause sedative effect so space out every 4 hours. Can take tylenol as well. Pt aware should not take oxycodone and percocet together since these have same medication. Pt agreeable to plan. She will update us on pain. ER precautions reviewed * Telephone Encounter - Marcie Martin RN - 10/07/2023 3:33 PM CDT Pt had botox inj 10/03/23. RN called pt, no answer, left VM. RN called spouse (Madie) who handed phone to pt. Pt sobbing on phone. Pt said yesterday pain started. Left/middle pelvic/vaginal pain pt states pain up inside of me Pt was taking percocet given from another provider for breakthrough pain but now out and can't refill until 10/10. Denies fever. Pt had some bleeding 2 days ago that resolved. No odor. Pt allergic to Ibuprofen. Pt taking 3 500mg tylenol and not really helping. RN advised pt only take 2 at a time with max 3000mg/day. Pt not taking any other medication for pain. Pt currently resting and uses heating pad RN went over with pt common to have flare up of pain after botox inj usually takes a week or so to see effects of medication but wouldn't expect severe pain. ER precautions reviewed. RN will send to Dr. Pedro HP message to advise * Telephone Encounter - Ele Salmeron - 10/07/2023 2:37 PM CDT Pt called and stated after having botox the pt is having a lot of pain per the pt the doctor stated she would send a prescription for pain meds. [phone] Pharmacy [facility] 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 [facility] - CASE MANAGEMENT DIRECTOR [address] [facility] [address] [place] [address] Fe Pedro MD [address] [facility] [address] [place] [address] documented as of this encounter Visit Diagnoses Not on filedocumented in this encounter Care Teams Insurance Claims Assistant Relationship Specialty Start Date End Date Noel Da Silva MD [address] [facility] [address] [place] [address] PCP - General Family Medicine 08/28/23 documented as of this encounter
--- OUTSIDE RECORDS SUMMARY | 2024-08-22 14:20 | XMS_ITS | CONTINUITY OF CARE DOCUMENT ---
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 completed Take 1 once a day 07/03 - 12/28 Nila aLra LINZESS CAPSULE completed only takes as needed 07/03 - 11/12 Alcira Zapien ACYCLOVIR TABLET completed take one pill a day 12/24 - 11/14 Nila Lara HYDROCHLOROTHIAZIDE 25 MG ORAL TABLET completed once a day as needed 12/03 - 12/03 Gopi Spence MD BENICAR 40 MG ORAL TABLET completed PO once per day 12/03 - 12/24 Bryce Tapia RN SAPHRIS 10 MG SUBLINGUAL TABLET SUBLINGUAL completed take one pill a day 12/03 - 11/14 Nila Lara Synthroid 150 mcg tablet completed Take 1 once a day 12/24 - 06/30 John Koenig MD alprazolam 1 mg tablet completed Take 4 12/03 - 06/30 John Koenig MD PERCOCET 10-325 MG ORAL TABLET completed takes 6 pills a day 12/03 - John Koenig MD fentanyl 100 mcg/hr patch 72 hour completed every other day 12/03 - 06/30 John Koenig MD SOCIAL HISTORY Date Observation Value Provider drug use no John Roblero alcohol use no John Roblero passive cigarette sm marcelino exposure yes John Koenig MD smoking/tobacco cess ation, patient education and counseling yes John Koenig MD smoking, year quit 2017 John altamirano MD smoking, date started 1982 John Koenig MD smoking history, tot al pack/year 35 John Koenig MD smoking history, tot al pack/day 15 cig daily John Koenig MD cigarette use yes John Koenig MD smoking status Current every da y smoker John Koenig MD smoking/tobacco cess ation, patient education and counseling yes Leena Ventimiglia [facility] drug use no Leena Ventimig rupnider [facility] alcohol use no Leena Darden rupinder VESSEL MANAGER smoking status Current every da y smoker Leena Tai [facility] smoking/tobacco cess ation, patient education and counseling yes John Koenig MD social history E&M Marital Statu s: Smoking History: P atient currently smokes every day. John Koenig MD social history reviewed E&M revi ewed - no changes required John Koenig MD smoking history, tot al pack/day 15 cig daily Heaven Stevens cigarette use yes Heaven Hilda smoking status Current every da y smoker Heaven Stevens passive cigarette sm marcelino exposure yes Nila Bermudezzonia smoking/tobacco cess ation, patient education and counseling yes Nila Bermudezzonia smoking, year quit 2017 Nila Bermudezpedro hernandez smoking, date started 1982 Nila Bermudezzonia smoking history, tot al pack/year 35 Nila Bermudezzonia smoking history, tot al pack/day 1/2 ppd Nila Castronatan cigarette use yes Nila Castro natan smoking status Current every da y smoker Nila Bermudezzonia social history reviewed E&M revi ewed - no changes required Denise Skinner NP passive cigarette sm marcelino exposure yes Flavio Mares smoking/tobacco cess ation, patient education and counseling yes Flavio Mares smoking, year quit 2017 Shayla Mares smoking, date started 1982 Sebastian Mares smoking history, tot al pack/year 35 Flavio Vishnu smoking history, tot al pack/day 1/2 ppd Flavio Mares cigarette use yes Flavio cronin smoking status Current every da y smoker Flavio Mares social history E&M Marital Statu s: Smoking History: Zaheer aviles currently smokes every day. John Koenig MD social history reviewed E&M revi ewed - no changes required John Koenig MD passive cigarette sm marcelino exposure yes Nila Bermudezzonia smoking, year quit 2017 Nila Hayes david smoking, date started 1982 Nila Guptashemar smoking history, tot al pack/year 35 Nila Bermudezzonia smoking history, tot al pack/day 1/2 ppd Nila Bermudezzonia cigarette use yes Nila Guptatalia gama smoking status Current every da y smoker Nila Jane smoking/tobacco cess ation, patient education and counseling yes John Koenig MD social history E&M Marital Statu s: Smoking History: Zaheer aviles is a former smoker. John Koenig MD alcohol use no Alcira Renteria- [place] drug use no Alciradenzel Renteria- [place] passive cigarette sm marcelino exposure yes Alcira Renteria-Kenton smoking, year quit 2017 Alcira brown-Kenton smoking, date started 1982 Alcira Zapien smoking history, tot al pack/year 35 Alcira Renteria-Kenton smoking history, tot al pack/day 1/2 ppd Alcira Renteria-[place]enton cigarette use yes Alciradenzel Larsen smoking status Former smoker Alcira Geno on-Kenton social history reviewed E&M revi ewed - no changes required Alcira Renteria-[place]enton alcohol use no Jennifer Fariha drug use no Jennifer Fariha passive cigarette sm marcelino exposure yes Jennifer Fariha smoking, year quit 2017 Jennifer Dayana s smoking, date started 1982 Jennifer Fariha smoking history, tot al pack/year 35 Jennifer Fariha smoking history, tot al pack/day 1/2 ppd Jennifer Fariha cigarette use yes Jennifer Fariha smoking status Former smoker Jennifer Fariha smoking, year quit 2017 Jie Delatorre alcohol use no Jie Lopese nson drug use no Jie William nson passive cigarette sm marcelino exposure yes Jie Delatorre smoking, date started 1982 Chelo Delatorre smoking history, tot al pack/year 35 Jie Delatorre smoking history, tot al pack/day 1/2 ppd Jie Delatorre cigarette use yes Jie singeron smoking status Former smoker Jie Leyva number of grandchildren John Rae NP alcohol use no Chastity El drug use no Chastity El smoking/tobacco cess ation, patient education and counseling yes Chastity El passive cigarette sm marcelino exposure yes Chastity El smoking, date started 1982 Chai ty El smoking history, tot al pack/year 35 Chastity El smoking history, tot al pack/day 1/2 ppd Chastity El cigarette use yes Chastity El smoking status current every da y smoker [facility], tot al pack/year 35 Ashley Renae RN social history E&M Marital Statu s: Smoking History: P atient currently smokes every day. P atient has been counseled to quit. John Koenig MD social history reviewed E&M revi ewed - no changes required John Koenig MD alcohol use no Nila solano drug use no Nila Carlotta lder smoking/tobacco cess ation, patient education and counseling yes Nila Matthewleonardgurdeep passive cigarette sm marcelino exposure yes Nila Lara smoking, date started 1982 Nila Lara smoking history, tot al pack/year 30 Nila Bermudezkirbytalialeonardgurdeep smoking history, tot al pack/day 1/2 ppd Nila Lara cigarette use yes Nila Castro elder smoking status current every da y smoker Nila Bermudezzonia number of grandchildren oGpi Spence MD social history reviewed E&M john daigleed - no changes required Gopi Spence MD alcohol use no Nila Bermudezkirbymona er drug use no Nila Laguerre er smoking/tobacco cess ation, patient education and counseling yes Nila Bermudezzonia passive cigarette sm marcelino exposure yes Nila Bermudezkirbytalialeonardgurdeep smoking, date started 1982 Nila Bermudezkirbytalialeonardgurdeep smoking history, tot al pack/year 30 Nila Bermudezzonia smoking history, tot al pack/day 2 Nila Jane cigarette use yes Nila Bermudezkirbytalia [facility] smoking status current every da y smoker Nila Bermudezzonia social history E&M Marital Status: [place] Bryce Tapia RN social history reviewed E&M reviewed Bryce Tapia RN smoking history, tot al pack/year 30 Bryce Tapia RN social history reviewed E&M reviewed Nila Lara drug use no Nila Aidanemilee solano passive cigarette sm marcelino exposure yes Nila Jane smoking/tobacco cess ation, patient education and counseling yes Nila Castroleonardgurdeep smoking history, tot al pack/day 2 Nila Lara smoking history, tot al pack/year 30 Nila Lara cigarette use yes Nila gama smoking, date started 1982 Nila Lara smoking status current every da y smoker Nila Lara FUNCTIONAL STATUS Date Observation Value Provider HRA, CV Assess/Plan, Angina (inactive) Management Plan continue current therapy John Koenig MD HRA, CV Assess/Plan, Angina (inactive) Management Plan continue current therapy Leena Ventimiglia VESSEL MANAGER HRA, CV Assess/Plan, Angina (inactive) Management Plan continue current therapy John Koenig MD HRA, CV Assess/Plan, Angina (inactive) Management Plan continue current therapy John Koenig MD HRA, CV Assess/Plan, Angina (inactive) Management Plan continue current therapy Denise Skinner NP HRA, CV Assess/Plan, Angina (inactive) Management Plan continue current therapy John Koenig MD HRA, CV Assess/Plan, Angina (inactive) Management Plan continue current therapy John Koenig MD HRA, CV Assess/Plan, Angina (inactive) Management Plan continue current therapy Leena Ventimiglia VESSEL MANAGER HRA, CV Assess/Plan, Angina (inactive) Management Plan schedule PCI Chelsy Rae INDUSTRIAL ENGINEERING PROFESSOR MENTAL STATUS Date Observation Value Provider assessment of judgme nt and insight E&M Alert and oriented to time, place and person. Mood and affect are normal. Bryce Tapia RN assessment of judgme nt and insight E&M Alert and oriented to time, place and person. Mood and affect are normal. Bryce Tapia RN FAMILY HISTORY Family Member Condition Father Family History of Di abetes: Mother Family History of Hy pertension: Mother Family History of Di abetes: Full Sister Family History of Hy pertension: Mother Family History of Hy pertension: Father Family History of Co ronary Artery Disease: INSURANCE PROVIDERS Payer name Policy type / Coverage type Kathe red green party ID [employer] Medicare [id number] HEALTHCARE AND FAMILY SERVICES Medicaid 0 [id number] ADVANCE DIRECTIVES Name Date DISCUSSED - NO DECISION MADE TREATMENT PLAN Date Name Performer [id number],C,cessation enc ouraged. Leenashannon Tai [facility] [id number],C,m oderate obstructive disease on last PFT w ill repeat PFT w heezing on exam will prescribe rescue inhaler h ave asked her to f/u with PCP H er updated medication list for this problem includes: Albuterol Sulfate 90 Mcg/actuation Hfa Aerosol Inhaler (Albuterol sulfate) ..... Inhale 1-2 puff using inhaler every four to six hours as needed for shortness of breath [facility] [id number],C,L DL 89 on last check w ill update labs H er updated medication list for this problem includes: Rosuvastatin 20 Mg Tablet (Rosuvastatin) ..... Take 1 tablet by mouth daily Zetia 10 Mg Tablet (Ezetimibe) ..... Take 1 tablet by mouth every day [facility] [id number],C,O n Jardiance with some improvement in SOB will continue [facility] [id number],C,B P controlled continue present meds H er updated medication list for this problem includes: Norvasc 10 Mg Tablet (Amlodipine) ..... Take 1 tablet by mouth once a day Aspirin 81 Mg Tablet,delayed Release (dr/ec) (Aspirin) ..... 1 tablet by mouth once a day Leenashannon Tai [facility] [id number],C,s mall bilateral on recent CT chest W ill repeat in one year Leenashannon Tai [facility] [id number],C,S he has known CAD with stent earlier this year a typical pain last night c ontinue present medication therapy w ill return in one month or sooner if needed if persistent consider repeat stress test H er updated medication list for this problem includes: Clopidogrel 75 Mg Tablet (Clopidogrel) ..... Take 1 tablet by mouth once daily Norvasc 10 Mg Tablet (Amlodipine) ..... Take 1 tablet by mouth once a day Aspirin 81 Mg Tablet,delayed Release (dr/ec) (Aspirin) ..... 1 tablet by mouth once a day Leena Tai VESSEL MANAGER [id number],C,r ightg iliac 70 on angiosceal shotl John Koenig MD [id number],SJohn MD [id number],SJohn MD [id number],S, m ild refuses titration/tx John Koenig MD [id number],SJohn MD [id number],SJohn MD [id number],B,w as fixed at cne for complte o ldl stents open dx has 85% which i could not cross with wisper or bmp in 21 John Koenig MD [id number],SJohn MD [id number],SJohn MD [id number],S, n eg iron egfr and uacr John Koenig MD [id number],S, T he patient is between 55-77 years old and has smoked at least 30 pack years. The patient is either a current smoker or has quit within the past 15 years. T he patient is recommended to have low dose CT scan for lung cancer screening. Has been counseled regarding the importance of tobacco cessation and abstinence. Shared decision making during this office visit included discussion of the benefits and harms of screening, possible future recommendations of follow-up diagnostic testing, and total amount of radiation exposure. The patient was recommended to have annual low dose CT scan for lung cancer screening and is willing to undergo diagnosis and treatment. P FT's ordered John Koenig MD [id number],S, n ml pro and lvedp 26 John Koenig MD [id number],C,nml pro and l vedp 26 John Koenig MD [id number],C,o ldl stents open dx has 85% which i could not cross with wisper or bmp in 21 w e can try in hosptital John Koenig MD [id number],C,neg iron egfr echo and uacr John Koenig MD [id number],S, John cook MD [id number],S, John cook MD [id number],S, John cook MD [id number],B, John cook MD [id number],B, John cook MD [id number],W, m ild refuses titration/tx John Koenig MD [id number],S, nml iron n eg egfr n eg echo John Koenig MD [id number],S, n lm pro John Koenig MD [id number],W, S /P stents to LAD and circ. Unable to cross diag lesion with wire. John Koenig MD [id number],S, T he patient is between 55-77 years old and has smoked at least 30 pack years. The patient is either a current smoker or has quit within the past 15 years. T he patient is recommended to have low dose CT scan for lung cancer screening. Has been counseled regarding the importance of tobacco cessation and abstinence. Shared decision making during this office visit included discussion of the benefits and harms of screening, possible future recommendations of follow-up diagnostic testing, and total amount of radiation exposure. The patient was recommended to have annual low dose CT scan for lung cancer screening and is willing to undergo diagnosis and treatment. P FT's ordered John Koenig MD [id number],S, John cook MD [id number],S, John cook MD [id number],S,L ipids at goal T he following medications were removed from the medication list: Crestor 20 Mg Tablet (Rosuvastatin) ..... 1 tablet once a day Her updated medication list for this problem includes: Rosuvastatin 20 Mg Tablet (Rosuvastatin) Heaven Guardado NP [id number],C,S /P stents to LAD and circ. Unable to cross diag lesion with wire. If angina recurs consider ECP or PCI at the hospital T he following medications were removed from the medication list: Plavix 75 Mg Tablet (Clopidogrel) ..... Take 1 tablet by mouth every day Her updated medication list for this problem includes: Clopidogrel 75 Mg Tablet (Clopidogrel) Aspirin 81 Mg Tablet,delayed Release (dr/ec) (Aspirin) ..... 1 tablet by mouth once a day Heaven Guardado NP [id number],N,L ocalized to right groin access site. Will obtain doppler to r/o pseudoaneurysm Heaven Guardado NP [id number],S,T he patient is between 55-77 years old and has smoked at least 30 pack years. The patient is either a current smoker or has quit within the past 15 years. T he patient is recommended to have low dose CT scan for lung cancer screening. Has been counseled regarding the importance of tobacco cessation and abstinence. Shared decision making during this office visit included discussion of the benefits and harms of screening, possible future recommendations of follow-up diagnostic testing, and total amount of radiation exposure. The patient was recommended to have annual low dose CT scan for lung cancer screening and is willing to undergo diagnosis and treatment. P FT's ordered Heaven Guardado NP [id number],C,l ad and second om stented for non clear reason cojld not cross diagnao lesion John Koenig MD [id number],C,BOTH STENTS R ESTENTISS John Koenig MD [id number],C,stents n past now pos nuc John Koenig MD [id number],S,f ollows pulmonology who will order PFT test Denise Skinner NP [id number],B, resolved 2 4 hour holter monitor ordered Denise Skinner NP [id number],S, nml iron Denise Skinner NP [id number],S, m ild refuses titration/tx Denise Skinner NP [id number],S, n lm pro r epeat echo Denise Skinner NP [id number],S, s tent to lad and om in 18 for compltre repeat stress and echo for recent ER visit for SOB and chest heaviness Denise Skinner NP Take your medication s every day as directed. Failing to take your medication properly can have a negative impact on your treatment. Please monitor your blood pressure and heart rate regularly, at least weekly. Sit quietly for 5 minutes before taking your blood pressure and heart rate. Recommend a healthy diet plan which would include lots of vegetables and fruits, poultry and fish, low fat dairy products. It would include lower quantities of carbohydrates, like breads, potatoes, rice and pasta. Only small amounts of sweets should be included. Recommend a low salt, or no added salt diet. Exercise of at least 3 times a week is recommended. Even small amounts of exercise regularly can be less intimidating but still beneficial. Please contact us if you have new Chest Pain, Shortness of Breath, Palpitations, Dizziness, or Edema. Suzi Jiang Cardiology:The patie nt is between 50-77 years old and has smoked at least 20 pack years. The patient is either a current smoker or has quit within the past 15 years. T he patient is recommended to have low dose CT scan for lung cancer screening. Has been counseled regarding the importance of tobacco cessation and abstinence. Shared decision making during this office visit included discussion of the benefits and harms of screening, possible future recommendations of follow-up diagnostic testing, and total amount of radiation exposure. The patient was recommended to have annual low dose CT scan for lung cancer screening and is willing to undergo diagnosis and treatment. John Koenig MD Cardiology John Koenig MD Cardiology: m ild refuses titration/tx John Koenig MD Cardiology John Koenig MD Cardiology John Koenig MD Cardiology:nml pro lved[ 26 Portillo Koenig MD Cardiology John Koenig MD Cardiology:neg holet er and tsh n eg iron egfr and uacr John Koenig MD Cardiology John Koenig MD Cardiology John Koenig MD Cardiology: s mall bilateral on recent CT chest W ill repeat John Koenig MD Cardiology:cessation encouraged. Watchung Zaire [facility] Cardiology:moderate obstructive disease on last PFT w ill repeat PFT w heezing on exam will prescribe rescue inhaler h ave asked her to f/u with PCP H er updated medication list for this problem includes: Albuterol Sulfate 90 Mcg/actuation Hfa Aerosol Inhaler (Albuterol sulfate) ..... Inhale 1-2 puff using inhaler every four to six hours as needed for shortness of breath Watchung Zaire [facility] Cardiology:LDL 89 on last check w ill update labs H er updated medication list for this problem includes: Rosuvastatin 20 Mg Tablet (Rosuvastatin) ..... Take 1 tablet by mouth daily Zetia 10 Mg Tablet (Ezetimibe) ..... Take 1 tablet by mouth every day Watchung Zaire [facility] Cardiology:On Jardia nce with some improvement in SOB [facility] Cardiology:BP contro lled continue present meds H er updated medication list for this problem includes: Norvasc 10 Mg Tablet (Amlodipine) ..... Take 1 tablet by mouth once a day Aspirin 81 Mg Tablet,delayed Release (dr/ec) (Aspirin) ..... 1 tablet by mouth once a day Leenashannon Tai [facility] Cardiology:small cameron ateral on recent CT chest W ill repeat in one year [facility] Cardiology:She has k nown CAD with stent earlier this year a typical pain last night c ontinue present medication therapy w ill return in one month or sooner if needed if persistent consider repeat stress test H er updated medication list for this problem includes: Clopidogrel 75 Mg Tablet (Clopidogrel) ..... Take 1 tablet by mouth once daily Norvasc 10 Mg Tablet (Amlodipine) ..... Take 1 tablet by mouth once a day Aspirin 81 Mg Tablet,delayed Release (dr/ec) (Aspirin) ..... 1 tablet by mouth once a day Watchung Gillgabbigeorgiana [facility] Cardiology:rightg iliac 70 on an giosceal shotl John Koenig MD Cardiology John Koenig MD Cardiology John Koenig MD Cardiology: m ild refuses titration/tx John Koenig MD Cardiology John Koenig MD Cardiology John Koenig MD Cardiology:was fixed at [facility] for complte o ldl stents open dx has 85% which i could not cross with wisper or bmp in 21 John Koenig MD Cardiology John Koenig MD Cardiology John Koenig MD Cardiology: n eg iron egfr and uacr John Koenig MD Cardiology: T he patient is between 55-77 years old and has smoked at least 30 pack years. The patient is either a current smoker or has quit within the past 15 years. T he patient is recommended to have low dose CT scan for lung cancer screening. Has been counseled regarding the importance of tobacco cessation and abstinence. Shared decision making during this office visit included discussion of the benefits and harms of screening, possible future recommendations of follow-up diagnostic testing, and total amount of radiation exposure. The patient was recommended to have annual low dose CT scan for lung cancer screening and is willing to undergo diagnosis and treatment. P FT's ordered John Koenig MD Cardiology: n ml pro and lvedp 26 John Koenig MD ecp vs stent jadriace, x 2.5?:nm l pro and lvedp 26 John Koenig MD ecp vs stent jadriac e, x 2.5?:oldl stents open dx has 85% which i could not cross with wisper or bmp in 21 w e can try in hosptital John Koenig MD need more ldla zetia or studyu?:neg iron egfr echo and uacr John Koenig MD Cardiology John Koenig MD Cardiology John Koenig MD Cardiology John Koenig MD Cardiology John Koenig MD Cardiology John Koenig MD Cardiology: m ild refuses titration/tx John Koenig MD Cardiology: nml iron n eg egfr n eg echo John Koenig MD Cardiology: n lm pro John Koenig MD Cardiology: S /P stents to LAD and circ. Unable to cross diag lesion with wire. John Koenig MD Cardiology: T he patient is between 55-77 years old and has smoked at least 30 pack years. The patient is either a current smoker or has quit within the past 15 years. T he patient is recommended to have low dose CT scan for lung cancer screening. Has been counseled regarding the importance of tobacco cessation and abstinence. Shared decision making during this office visit included discussion of the benefits and harms of screening, possible future recommendations of follow-up diagnostic testing, and total amount of radiation exposure. The patient was recommended to have annual low dose CT scan for lung cancer screening and is willing to undergo diagnosis and treatment. P FT's ordered John Koenig MD Cardiology John Koenig MD Cardiology John Koenig MD Cardiology:Lipids at goal T he following medications were removed from the medication list: Crestor 20 Mg Tablet (Rosuvastatin) ..... 1 tablet once a day Her updated medication list for this problem includes: Rosuvastatin 20 Mg Tablet (Rosuvastatin) Heaven Guardado NP Cardiology:S/P stent s to LAD and circ. Unable to cross diag lesion with wire. If angina recurs consider ECP or PCI at the hospital T he following medications were removed from the medication list: Plavix 75 Mg Tablet (Clopidogrel) ..... Take 1 tablet by mouth every day Her updated medication list for this problem includes: Clopidogrel 75 Mg Tablet (Clopidogrel) Aspirin 81 Mg Tablet,delayed Release (dr/ec) (Aspirin) ..... 1 tablet by mouth once a day Heaven Guardado NP Cardiology:Localized to right groin access site. Will obtain doppler to r/o pseudoaneurysm Heaven Guardado NP Cardiology:The patie nt is between 55-77 years old and has smoked at least 30 pack years. The patient is either a current smoker or has quit within the past 15 years. T he patient is recommended to have low dose CT scan for lung cancer screening. Has been counseled regarding the importance of tobacco cessation and abstinence. Shared decision making during this office visit included discussion of the benefits and harms of screening, possible future recommendations of follow-up diagnostic testing, and total amount of radiation exposure. The patient was recommended to have annual low dose CT scan for lung cancer screening and is willing to undergo diagnosis and treatment. P FT's ordered Heaven Guardado NP :lad and second om s tented for non clear reason cojld not cross diagnao lesion John Koenig MD :BOTH STENTS RESTENTISS John martinez MD :stents n past now pos nuc Adria Koenig MD Cardiology:follows p ulmonology who will order PFT test eDnise Skinner NP Cardiology: resolved 2 4 hour holter monitor ordered Denise Skinner NP Cardiology: nml iron Denise Skinner NP Cardiology: m ild refuses titration/tx Denise Skinner INDUSTRIAL ENGINEERING PROFESSOR Cardiology: n lm pro r epeat echo Denise Skinner INDUSTRIAL ENGINEERING PROFESSOR Cardiology: s tent to lad and om in 18 for compltre repeat stress and echo for recent ER visit for SOB and chest heaviness Denise Dillgemma INDUSTRIAL ENGINEERING PROFESSOR Cardiology Follow up : H er updated medication list for this problem includes: Synthroid 150 Mcg Oral Tablet (Levothyroxine sodium) ..... Take one pill a day Labs Reviewed: T SH: 0.097 (07/09/2017) Total T4: 10.5 (07/09/2017) C hol: 117 (07/26/2017) HDL: 46 (07/26/2017) John Koenig MD Cardiology Follow up John le MD Cardiology Follow up : m ild John Koenig MD Cardiology Follow up John le MD Cardiology Follow up : T he following medications were removed from the medication list: Rosuvastatin Calcium 20 Mg Tabs (Rosuvastatin calcium) ..... Take 1 tablet by mouth dailyneed appt for refill Her updated medication list for this problem includes: Crestor 20 Mg Oral Tablet (Rosuvastatin calcium) ..... One tab. daily C HOL: 117 (07/26/2017) HDL: 46 (07/26/2017) John Koenig MD Cardiology Follow up : nml iron John Koenig MD Cardiology Follow up John le MD Cardiology Follow up : n lm pro John Koenig MD Cardiology Follow up John le MD Cardiology Follow up John le MD Cardiology Follow up : s tent to lad and om in 18 for compltre John Koenig MD Cardiology:nlm pro John Koenig MD Cardiology: H er updated medication list for this problem includes: Synthroid 150 Mcg Oral Tablet (Levothyroxine sodium) ..... Take one pill a day Labs Reviewed: T SH: 0.097 (07/09/2017) Total T4: 10.5 (07/09/2017) C hol: 117 (07/26/2017) HDL: 46 (07/26/2017) John Koenig MD Cardiology:mild John Koenig MD Cardiology:stent to lad and om i n 18 for compltre John Koenig MD Cardiology John Koenig MD Cardiology John Koenig MD Cardiology John Koenig MD Cardiology: nml iron and tele Evans brandon Koenig MD Cardiology: H er updated medication list for this problem includes: Crestor 20 Mg Oral Tablet (Rosuvastatin calcium) ..... One tab. daily C HOL: 117 (07/26/2017) HDL: 46 (07/26/2017) John Koenig MD Cardiology John Koenig MD [facility] hospital follow up-seen with MD and INDUSTRIAL ENGINEERING PROFESSOR :continued cessation encouraged [facility] follow up-seen with MD and INDUSTRIAL ENGINEERING PROFESSOR :will do titration study [facility] follow up-seen with MD and INDUSTRIAL ENGINEERING PROFESSOR :at goal cont present regimen H er updated medication list for this problem includes: Crestor 20 Mg Oral Tablet (Rosuvastatin calcium) ..... One tab. daily [facility] follow up-seen with MD and INDUSTRIAL ENGINEERING PROFESSOR :will check levels [facility] follow up-seen with MD and INDUSTRIAL ENGINEERING PROFESSOR :cont present regimen H er updated medication list for this problem includes: Plavix 75 Mg Oral Tablet (Clopidogrel bisulfate) ..... One tab a day Aspirin Adult Low Dose 81 Mg Oral Tablet Delayed Release (Aspirin) ..... One tab by mouth daily [facility] follow up-seen with MD and INDUSTRIAL ENGINEERING PROFESSOR :will check panel [facility] Cardiology:Patient h as recently quit smoking and has nicotine patch in place. Heaven Guardado NP Cardiology:Continue Crestor H er updated medication list for this problem includes: Crestor 20 Mg Oral Tablet (Rosuvastatin calcium) ..... One tab. daily Heaven Debby SHAW Cardiology:Patient i s scheduled for intervention of 2 vessel disease 08/07/17 at [facility]. She understands that should she develop persistent chest pain that she should not wait and proceed to ER right away. No NTG given due to low BP. H er updated medication list for this problem includes: Plavix 75 Mg Oral Tablet (Clopidogrel bisulfate) ..... One tab a day Aspirin Adult Low Dose 81 Mg Oral Tablet Delayed Release (Aspirin) ..... One tab by mouth daily Heaven Guardado NP Cardiology;CATHY Avendano NP and MD :Has recently cut down Chelsy Rae NP Cardiology;CATHY Avendano NP and Tracy Rae NP Cardiology;CATHY Avendano NP and Tracy Rae NP Cardiology;CATHY Avendano NP and MD :TTE 07/08/2017 1. Normal left ventricular systolic function. Normal left ventricular size. Normal left ventricular wall t hickness. There is impaired LV relaxation. Left ventricular ejection fraction is estimated at 65 %. 2 . There is non-specific thickening of the mitral valve leaflets. There is trace physiologic mitral valve r egurgitation. 3. Normal appearing tricuspid valve leaflets. There is trace physiologic tricuspid valve regurgitation. 4 . Normal aortic root size. Mild aortic wall calcification. 5 . Normal pericardium with no pericardial or pleural effusion. 6 . The left atrium is normal in size. Chelsy Rae NP Cardiology;CATHY Avendano NP and MD :started on crestor Chelsy Rae NP Cardiology;CATHY Avendano NP and :has not recieved cpap Chelsy Kyra COLIN Cardiology;CATHY Avendano NP and :[facility] 1 . High-grade two vessel coronary artery disease involving the mid LAD and second obtuse marginal. 2 . Moderate calcification of the epicardial coronaries. 3 . Mild tapered narrowing mid right coronary artery. 4 . Normal left ventricular wall motion and systolic function. 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 She is on high doses of pain medication and follows neurology. Gopi Spence MD Cardiology Follow u p:Likely multifactorial related to smoking history and possible CAD. Will check PFT's Gopi Spence MD Cardiology Follow u p:STRONGLY ENCOURAGED TO STOP SMOKING; SMOKING CESSATION TECHNIQUES DISCUSSED. Gopi Spence MD Cardiology Follow u p:Symptomatic with chest pain and chest pressure which wakes her from sleep, as well as shortness of breath. With family history of CAD, likely etiology is cardiac ischemia. Will arrange stress test. Gopi Spence MD Date Name CXR- PA/Lat Arterial Duplex Bi-L ower EX TSH, free T4, total T3 BASIC METABOLIC PANE L W/EGFR CRP, high sensitivit y Lipoprotein (a) LIPID PANEL CT Chest without con trast Low Dose Lung CT LIPID PANEL DLCO - 64148 FRC - 64731 FVC - 23778 LIPID PANEL Holter Monitor 24 Hr TSH, free T4, total T3 Low Dose Lung CT TSH, free T4, total T3 TSH, free T4, total T3 RPM (remote patient monitoring) Complete Echo Cardiac Cath - Left - [facility] CXR- PA/Lat PROTHROMBIN TIME WIT H INR LIPID PANEL CBC (INCLUDES DIFF/P LT) BASIC METABOLIC PANE L W/EGFR Microalb/Creatinine Urine, Random Lipoprotein (a) Low Dose Lung CT Holter Monitor [address]ose [address] CT DLCO - 91838 FRC - 75927 FVC - 14126 Arterial Duplex to r /o pseudoanuerysm PROTHROMBIN TIME WIT H INR LIPID PANEL CBC (INCLUDES DIFF/P LT) BASIC METABOLIC PANE L W/EGFR Stress Regadenoson Complete Echo Holter Monitor 24 Hr Sleep Study - split night DLCO - 59599 FRC - 36344 FVC - 93606 Holter Monitor 24 Hr Carotid Duplex Bilat eral Sleep Study - split night DLCO - 09730 FRC - 25730 FVC - 42871 IRON AND TOTAL IRON BINDING CAPACITY FERRITIN VITAMIN B12 Vitamin D, 25-Hydrox y PROBNP, N TERMINAL FERRITIN IRON AND TOTAL IRON BINDING CAPACITY Vitamin D, 25-Hydrox y VITAMIN B12 PROBNP, N TERMINAL Sleep Study Titratio n CBC (INCLUDES DIFF/P LT) LIPID PANEL BASIC METABOLIC PANE L W/EGFR PROTHROMBIN TIME WIT H INR Cardiac Cath - Left - GC Sleep Study Home Cardiac Cath - Left - [facility] Vitamin D, 25-Hydrox y VITAMIN B12 FERRITIN IRON AND TOTAL IRON BINDING CAPACITY C-REACTIVE PROTEIN COMPREHENSIVE METABO LIC PANEL, W/EGFR X-Ray, Chest - Routi ne PROBNP, N TERMINAL PROTHROMBIN TIME WIT H INR LIPID PANEL CBC (INCLUDES DIFF/P LT) THYROID PANEL WITH T SH, 3RD GENERATION DLCO - 73955 FRC - 42183 FVC - 80891 Complete Echo Complete Echo DLCO - 77254 FRC - 06718 FVC - 62389 STR - Adenosine Spirometry T3, TOTAL T-4, FREE TSH, 3RD GENERATION LIPID PANEL STR - Nuclear Complete Echo BASIC METABOLIC PANE L W/EGFR HISTORY OF PROCEDURES Procedure Date Procedure Name Provider Procedure Notes S tatus Complex e/m visit add on John Koenig MD completed Counseling LDCT John Koenig MD one year com pleted Counseling LDCT John Koenig MD com pleted Counseling LDCT John Koenig MD day of cath co mpleted EKG John Koenig MD complete d Counseling LDCT John Koenig MD com pleted EKG John Koenig MD complete d EKG John Koenig MD complete d FVC / MVV with bronchodilator - 41888 John Koenig MD completed BLOOD COUNT HEMOGLOBIN John Koenig MD completed FRC - 20792 John Koenig MD complet ed SpO2 w/o 6min walk/titration John Koenig MD completed DLCO - 75767 John Koenig MD comple brandy Schedule Followup John Koenig MD 1 rosario h post cardiac cath completed FVC / MVV with bronchodilator - 35358 John Koenig MD completed BLOOD COUNT HEMOGLOBIN John Koenig MD completed FRC - 50027 John Koenig MD complet ed SpO2 w/o 6min walk/titration John Koenig MD completed DLCO - 31501 John Koenig MD comple brandy EKG Gopi Spence MD complet ed SNOMED-CT: [id number] Current Medications Documented Gopi Spence MD completed EKG Gopi Spence MD complet ed
--- OUTSIDE RECORDS SUMMARY | 2024-08-22 14:20 | XMS_ITS | Continuity of Care Document ---
Author Organization [facility] Address [address] [place] [address] [address] [place] [address] Phone Care Team Providers Care Auto Glass Technician Name Role Phone Marvin Peralta Unavailable Unavailable Procedures Procedure Date Office/outpatient Visit, [facility] Script Printed/Phoned Pt Requ Or Pharm N ot Availab Advance Directives Directive Yes / No Effective Date File Name No Information Encounters Encounter Description Practice Location Reason(s) For Visit Diagnoses Date Provider Providers Copied on Encounter Office/outpat ient Visit, [facility], [address] [place], [place], [id number], [place] tel:[phone] [facility] No Information [address] Fabian Wong. [address] , [address], [place], [address], [place]. tel:[phone] Family History Family Member Type Diagnosis Age At Onset No Information Payers Payer name Insurance type Covered republican ID Authoriza tion(s) Medicare [facility] [id number] Medicaid [facility] [id number] Social History Type Description Quantity Date Captured Comments Sex Female Smoking Status No Information Chief Complaint And Reason For Visit No Information Reason For Referral Reason For Referral No Information History Of Present Illness Encounter Date Complaint History Of Prese nt Illness No Information Functional Status Date Functional Assessmen t No Information Instructions Date Instruction Additional Infor mation No Information Assessments Type Assessment Date No Information Patient Care Teams Name Effective Dates (start - stop) Status Members No Information
--- OUTSIDE RECORDS SUMMARY | 2024-08-22 14:20 | XMS_ITS | Encounter Summary ---
Author Organization [facility] Address [address] [facility] [place] [address] Care Team Providers Care Fish Packer Name Role Phone Noel Da Silva MD Primary Care Provider + Reason for Visit * Reason Onset Date Comments Nurse Only 10/23/2023 Encounter Details Date Type Department Care Team (Late st Contact Info) Description 10/23/2023 Telephone [facility] - INVOICE CLASSIFICATION CLERK [address] [facility] [address] [place] [address] Fe Pedro MD [address] 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 No answer, left VM. RN called spouse Madie as requested from message. Pt has post op apt today that she missed. Per Madie pt had severe vaginal pain and went by ambulance to [facility]. Per Madie they gave her a sedative and she is sleeping now Per Madie the ER was packed. They made her stand and started an IV. When RN asked if she was seen by a provider there he said well they started an METAL MODEL BUILDER does not see anything in care everywhere and Madie said they are home now. RN offered post op appt 10/27@11am. Madie said he will need to wait until she wakes up to check her schedule. RN held the spot and Madie aware to call back and let RN know if this works. Madie said pt in a lot of pain. Pt has chronic pain. Sees a pain specialist who gives her morphine tablets that she goes through. Pt feels like providers offices discriminate against her because she is a woman. Joseph pt said if she was a man in pain they would give pain meds RN recommended pt f/u with pain management and in needing ER our providers have privileges at [facility]. Madie will call us back if appt time will work RN held 10/27 @11am * Telephone Encounter - Sadaf Liu - 10/23/2023 1:02 PM CDT Pt calling to reschedule appt for today. No available appts until Jan. Pt needs to be seen for postop visit * Telephone Encounter - Sadaf Liu - 10/23/2023 12:54 PM CDT Patient calling. Pt has appt scheduled for today but patient was sent to ER in ambulance because she was having really bad pain. Patient can be reached by cell and if theres no answer husbandis asking for call back documented in this encounter Plan of Treatment Upcoming Encounters Date Type Department Care Team ([facility] st Contact Info) Description 10/09/2024 3:00 PM CDT Office Visit [facility] - INVOICE CLASSIFICATION CLERK [address] [facility] [address] [place] [address] Fe Pedro MD [address] [facility] [address] [place] [address] documented as of this encounter Visit Diagnoses Not on filedocumented in this encounter Care Teams Fish Packer Relationship Specialty Start Date End Date Noel Da Silva MD [address] [facility] [address] [place] [address] PCP - General Family Medicine 08/28/23 documented as of this encounter
== END 2024-08-21 14:14 | disposition home or self-care (01) ==
LOC: ANHLAB 14:16
PROVIDERS: PCP Family Medicine Adolescent Medicine; Visit Provider Family Medicine Adolescent Medicine
DX: E03.9 Hypothyroidism, unspecified (principal); I10 Essential (primary) hypertension; E78.00 Pure hypercholesterolemia, unspecified
CPT/HCPCS: 36415; 80053; 80061; 84443

== ENCOUNTER 2024-09-09 07:51 | Outpatient (CLI) | payer MEDICARE, MEDICAID, SELFPAY ==
--- NOTE | ~2024-09-09 | MR_ITS ---
MRI of the thoracic spine Clinical History: Pain Technique: Axial T2-weighted and gradient images, and sagittal T1-weighted, T2-weighted, and STIR suma ges were acquired. Findings: There is no fracture or subluxation of the thoracic spine. Vertebral bodies maintain normal height and alignment. No bone marrow signal abnormality seen. There is moderate degenerative disc narrowing at T7-T8 and T8-9, with more mild degenerative disc rober rowing at the lower thoracic spine. No significant disc bulge or herniation seen. No spinal canal shey nosis or cord compression identified. Neural foramina are preserved throughout the thoracic spine. There is minimal prominence of the central canal the spinal cord at the T6 and T7 levels, where it me asures 1.5 mm in diameter (axial images 19 and 22). Paravertebral soft tissues are unremarkable. Impression: Minimal prominence of the central canal of the spinal cord at the T6 and T7 levels, as detailed above . Mild degenerative spondylosis, as above. Reviewed, dictated and finalized at location . Impression: Minimal prominence of the central canal of the spinal cord at the T6 and T7 lev els, as detailed above. Mild degenerative spondylosis, as above.
--- OUTSIDE RECORDS SUMMARY | 2024-09-09 08:22 | XMS_ITS | Data Portability ---
Author Organization [place] [facility], Main Office Address [address] [place] [address] Care Team Providers Care Ultrasound Spec Name Role Phone MILES MAST Primary Care Provider MILES MAST Referring Provider [phone] Assessment Encounter Date Assessment Date Assessment LastModified by Organization Details LastModified Time 07/20/2022 07/20/2022 Impression: Patient has pain that seems to radiate from her sacrum to her pubis associated with this she has pain in her vagina evaluation of which I will defer to her binder sorter, and severe tenderness at the top of [...] report the MRI with her for the binder sorter's review. She may have 2 issues 1 [...] than half of this time spent in [id number] care. [email or web address] Not available 07/22/2022 15:08:36 Plan [...] 04/17/2022 MRI, pelvi s, w/o contr ast [facility] [address] [facility] [place] [address] Juanita t Name: JE CHILDSNE Justin Access ion #: [id number] Sex: F : 1965 3 Locati [...] ular imping ement Page 1 of 2 [facility] Patien t Name: TASHI CHILDS Access ion #: [id number] Sex: F : 1965 3 Exam Date: 2021 2:58 PM Exam Name: MRI PELVIS WO Admitt ing Diagno sis(es ): Cartil age: Preser tana Labrum : Eviden ce of bilate ral degene rative tears Joint space: Bilate ral osteoa rthrit ic residu als noted. Bursa: No eviden ce of bursit is. 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 Muscle s: Grossl y intact Soft tissue s: No eviden ce of a hernia . IMPRES CLARISA: See above Create d and electr onical ly signed by: Robert atkins MD Signed Date: 2021 4:51 PM (CT) Dictat ed by: Robert atkins MD DD: 2021 4:51 PM (CT) DT: 2021 4:51 PM (CT) Page 2 of 2 [id number] [facility] (Imaging) [address] [place], [address], 06/20/2022 07:37:29 09/06/19 23 09/05/2022 joint aspir ation (PROC ) No observ ation record ed. [email or web address] [address], [place], [address], 09/05/2022 16:48:36 Result Notes None recorded. 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 Procedures Surgical History Date Name Laterality Status Provider Name and Address Organization Details Recorded Time Appendectomy completed Not Available [facility] 06/20/2022 07:27:19 Back completed Not Available [facility] 04/2022 07:27:19 Imaging Results Imaging Date Name Status LastModified by Organiz ation Details LastModified Time 04/17/2022 MRI, pelvis, w/o contrast completed [id number] [facility] (Imaging) [address] [place], [address], 06/20/2022 07:37:29 09/05/2022 joint aspiration (PROC) completed [address] [place] [address], [address], 09/05/2022 16:48:36 Procedure Notes None recorded. Medical Equipment None Reported. Allergies Allergen ID Allergen Name Allergen Category Reaction Reaction Severity Criticality Documentation Date Start Date Code Code System Note Provider Name and Address Organization Details Recorded Time 19224 ibuprofen medicatio n Not available Not available Not available 06/20/2022 5640 RxNorm Not Available [facility] 07:37:24 Medications Name Sig Start Date Stop [...] Updated DateTime 04/10/2022 27.4 kg/m2 167.64 cm 29019.7 g Not Available [facility] 06/20/2022 07:30:53 Date Recorded Body height Provider Name an d Address Organization Details Last Updated DateTime 07/20/2022 167.64 cm Glendy BALJIT Nixon [place] [facility] 07/20/2022 11:08:17 Social History Question Answer Notes LastModified by Organizat ion Details LastModified Time Tobacco Smoking Status Current Every Day Smoker Not Available [facility] 06/20/2022 07:27:16 How Much Tobacco Do You Smoke? 1 PPD [id number] Information not available 06/20/2022 How Many Years Have You Smoked Tobacco? 30 [id number] Information not available 06/20/2022 Sex: Unknown Functional Status Question Answer Note LastModified by Organizat ion Details LastModified Time What is your level of alcohol consumption? None [id number] Information not available 06/20/2022 Mental Status None recorded. Family History Relationship Description Onset Age of this Age Resolved Age Notes LastModified by Organization Details LastModified Time Father Heart disease [id number] Not available 06/20/2022 07:27:21 Father Hypertensive disorder [id number] Not available 06/20/2022 07:27:21 Mother Family history of malignant neoplasm [id number] Not available 06/20/2022 07:27:21 Mother Hypertensive disorder [id number] Not available 06/20/2022 07:27:21 Mother Diabetes mellitus [id number] Not available 06/20/2022 07:27:21 Medical History Condition Response COPD Y ARTHRITIS Y USE OF BLOOD THINNERS Y Gynecological HistoryNo gynecological history recorded. Obstetrics History GPAL:G 0 P 0 0 0 0 Past Encounters Encounter ID Performer Location Encounter Start Date Encounter Closed Date Diagnosis/Indication Diagnosis SNOMED-CT Code Diagnosis ICD10 Code Diagnosis Note [id number] Esteban Rayo MD [facility] [address] [place] [address] 04/10/2022 00:00:00 04/10/2022 10:59:44 [id number] Jama Jose MD [facility] [address] [place] [address] 07/20/2022 11:04:58 07/23/2022 10:11:01 Inflammation of pubic symphysis 300603158 M86.8X8 Pain in pelvis 60194231 R10.2 Health Concerns Section Related Observation LastModified by Organization Detai ls LastModified Time None Recorded Concern Status LastModified by Organization Details LastModified Time None Recorded Advance Directives Directive None Recorded Payers Encounter Date Sequence Insurance Name Policy Number Policy [place] Covered Member ID [place] Member ID Guarantor Name 07/20/2022 1 [place] Tashi Crowellon [id number] Tashi Crowellon 07/20/2022 2 [place] WHEN MEDICARE OR MEDICARE REPLACEMENT PRIMARY) Tashi Beardyton [id number] Tashi Castaneda Notes Date Note Type Note [...] managed by a pain management doctor in [place] Dr. Bojorquez. x-rays of both hips and [...] copy of the CD images to her binder sorter for him to study the pelvic floor [...] previous thoracic surgery that she had in 2004. I do not see any evidence of active ongoing spinal cord compression however. Jama Jose MD [address] [place] [address], [facility] [address], [place], [address], [place] [facility] 07/23/2022 19:25:08 OBGyn Episode No OBEpisode recorded.
--- OUTSIDE RECORDS SUMMARY | 2024-09-09 08:25 | XMS_ITS | Encounter Summary ---
Author Organization [facility] Health Address [address] [place] [address] Care Team Providers Care Venereal Disease Control Head Name Role Phone Noel Da Silva MD Primary Care Provider + Reason for Visit * Reason Onset Date Comments Nurse Only 10/23/2023 Encounter Details Date Type Department Care Team (Late st Contact Info) Description 10/23/2023 Telephone [facility] - DERRICK HAND [address] [facility] [address] [place] [address] Fe Pedro MD [address] [facility] [address] [place] [address] Nurse Only Social History Tobacco [...] on file 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. Per Madie they gave her a sedative and she is sleeping now Per Madie the ER was packed. They made her stand and started an IV. When RN asked if she was seen by a provider there he said well they started an MACHINE BILLER does not see anything in care everywhere [...] needing ER our providers have privileges at [place]. Madie will call us back if appt [...] Upcoming Encounters Date Type Department Care Team ([facility] st Contact Info) Description 10/09/2024 3:00 PM CDT Office Visit [facility] - DERRICK HAND [address] [facility] [address] [place] [address] Fe Pedro MD [address] [facility] [address] [place] [address] documented as of this encounter Visit Diagnoses Not on filedocumented in this encounter Care Teams Venereal Disease Control Head Relationship Specialty Start Date End Date Noel Da Silva MD [address] [facility] [address] [place] [address] PCP - General Family Medicine 08/28/23 documented as of this encounter
--- OUTSIDE RECORDS SUMMARY | 2024-09-09 08:25 | XMS_ITS | Encounter Summary ---
Author Organization [facility] Health Address [address] [facility] [place] [address] Care Team Providers Care Architectural Project Manager Name Role Phone Angel Alcaraz Primary Care Provider Noel Matthews MD Primary Care Provider + Reason for Visit * Reason Onset Date Comments Question 01/16/2023 Encounter Details Date Type Department Care Team (Late st Contact Info) Description 01/16/2023 Telephone [facility] - Centralized Scheduling [facility] [place] [address] Radha Edmond MD Question Social History Tobacco Use Types Packs/Day Years Used Date Smoking Tobacco: Every Day Cigarettes Smokeless Tobacco: Never Alcohol Use Standard Drinks/Week Comments Not Currently 0 (1 standard drink = 0.6 oz pur e alcohol) Comments Unknown Sex and Gender Information Value Date Recorded Sex Assigned at Not on file 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 Pt can be reached at [phone]. 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
--- OUTSIDE RECORDS SUMMARY | 2024-09-09 08:25 | XMS_ITS | CONTINUITY OF CARE DOCUMENT ---
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 Crestor 20 Mg Oral Tablet (Rosuvastatin calcium) ..... One tab. daily [facility] follow up-seen with MD and PROGRAM STRATEGIST :will check levels [facility] follow up-seen with MD and PROGRAM STRATEGIST :cont present regimen H er updated medication list for this problem includes: Plavix 75 Mg Oral Tablet (Clopidogrel bisulfate) ..... One tab a day Aspirin Adult Low Dose 81 Mg Oral Tablet Delayed Release (Aspirin) ..... One tab by mouth daily [facility] follow up-seen with MD and PROGRAM STRATEGIST :will check panel [facility] Cardiology:Patient h as recently quit smoking and has nicotine patch in place. Heaven Guardado NP Cardiology:Continue Crestor H er updated medication list for this problem includes: Crestor 20 Mg Oral Tablet (Rosuvastatin calcium) ..... One tab. daily Heaven Debby SHAW Cardiology:Patient i s scheduled for intervention of 2 vessel disease 08/07/17 at [facility]. She understands that should she develop persistent [...] Chelsy Kyra COLIN Cardiology;CATHY Avendano NP and :[facility] 1 . High-grade two vessel coronary [...] Dose Lung CT LIPID PANEL DLCO - 72206 FRC - 15340 FVC - 56393 LIPID PANEL Holter Monitor 24 Hr TSH, [...] Hr Low Dose Lung CT DLCO - 31224 FRC - 31876 FVC - 89926 Arterial Duplex to r /o pseudoanuerysm PROTHROMBIN TIME WIT H INR LIPID PANEL CBC (INCLUDES DIFF/P LT) BASIC METABOLIC PANE L W/EGFR Stress Regadenoson Complete Echo Holter Monitor 24 Hr Sleep Study - split night DLCO - 09996 FRC - 27952 FVC - 80845 Holter Monitor 24 Hr Carotid Duplex Bilat eral Sleep Study - split night DLCO - 21838 FRC - 04913 FVC - 59720 IRON AND TOTAL IRON BINDING CAPACITY FERRITIN [...] WITH T SH, 3RD GENERATION DLCO - 65650 FRC - 52380 FVC - 08476 Complete Echo Complete Echo DLCO - 58336 FRC - 25818 FVC - 18076 STR - Adenosine Spirometry T3, TOTAL T-4, FREE TSH, 3RD GENERATION LIPID PANEL STR - Nuclear Complete Echo BASIC METABOLIC PANE L W/EGFR HISTORY OF PROCEDURES Procedure Date Procedure Name Provider Procedure Notes S tatus Complex e/m visit add on John Koenig MD completed Counseling LDCT John Koenig MD one year com pleted Counseling LDCT John Koenig MD com pleted Counseling LDSUE Koenig MD day of cath co mpleted EKG John Koenig MD complete d Counseling LDCT John Koenig MD com pleted EKG John Koenig MD complete d EKG John Koenig MD complete d FVC / MVV with bronchodilator - 68713 John Koenig MD completed BLOOD COUNT HEMOGLOBIN John Koenig MD completed FRC - 96949 John Koenig MD complet ed SpO2 w/o 6min walk/titration John Koenig MD completed DLCO - 02811 John Koenig MD comple barndy Schedule Followup John Koenig MD 1 rosario h post cardiac cath completed FVC / MVV with bronchodilator - 85608 John Koenig MD completed BLOOD COUNT HEMOGLOBIN John Koenig MD completed FRC - 73873 John Koenig MD complet ed SpO2 w/o 6min walk/titration John Koenig MD completed DLCO - 10359 John Koenig MD comple brandy EKG Gopi Spence MD complet ed SNOMED-CT: [id number] Current Medications Documented Gopi Spence MD completed EKG Gopi Spence MD complet ed
--- OUTSIDE RECORDS SUMMARY | 2024-09-09 08:25 | XMS_ITS | Continuity of Care Document ---
Author Organization [facility] Address [address] [place] [address] [address] [place] [address] Phone Care Team Providers Care Aerospace Medicine Physician Name Role Phone Marvin Peralta Unavailable Unavailable Procedures Procedure Date Office/outpatient Visit, [facility] Script Printed/Phoned Pt Requ Or Pharm N ot Availab Advance Directives Directive Yes / No Effective Date File Name No Information Encounters Encounter Description Practice Location Reason(s) For Visit Diagnoses Date Provider Providers Copied on Encounter Office/outpat ient Visit, [facility], [address], [place], [place], [id number], [place] tel:[phone] [facility] No Information [address] Wong. [address] , [address], [place], [address], [place]. tel:[phone] Family History Family Member Type Diagnosis Age At Onset No Information Payers Payer name Insurance type Covered democrat ID Authoriza tion(s) Medicare [facility] [id number] Medicaid [facility] [id number] Social History Type Description Quantity Date Captured [...]
--- OUTSIDE RECORDS SUMMARY | 2024-09-09 08:25 | XMS_ITS | Encounter Summary ---
Author Organization [facility] Address [address] [place] [address] Care Team Providers Care Normalizer Name Role Phone Noel Da Silva MD Primary Care Provider + Reason for Visit * Reason Onset Date Comments Pain 10/07/2023 Encounter Details Date Type Department Care Team (Late Contact Info) Description 10/07/2023 Telephone [facility] [employer] [address] [place] [address] Fe Pedro MD [address] [place] [address] Pain Social History Tobacco Use [...] on file 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 RN wentover plan for [...] would send a prescription for pain meds. [phone] Pharmacy [facility] 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 [facility] [employer] [address] [facility] [address] [facility] [address] [place] [address] Fe Pedro MD [address] [facility] [address] [place] [address] documented as of this encounter Visit Diagnoses Not on filedocumented in this encounter Care Teams Normalizer Relationship Specialty Start Date End Date Noel Da Silva MD [address] [place] [address] PCP - General Family Medicine 08/28/23 documented as of this encounter
--- OUTSIDE RECORDS SUMMARY | 2024-09-09 08:26 | XMS_ITS | Data Portability ---
Author Organization [facility] [place] Address [address] [place] [address] Care Team Providers Care Headrig Sawyer Name Role Phone RANDEE ALLEN Primary Care Provider Assessment Encounter Date Assessment Date Assessment LastModified by Organization Details LastModified Time 12/04/2021 12/04/2021 pelvic PT not seeming to help now with hip and low back pain, may all be related possible abnormality on XR< should follow up with PCP re maybe more imaging or orthopedics referral? WWE due in Apr 2022 [email or web address] Not available 12/25/2021 17:08:28 04/02/2023 04/02/2023 Annual gynecological exam performed. Patient will come back in a year unless there are new symptoms. [email or web address] Not available 04/02/2023 16:25:47 Plan of Treatment Reminders Order Date Submit Date Provider Last Modified By Organization Details Last Modified Time Details Appointments None recorded . Lab None recorded . Referral None recorded . Procedures None recorded . Surgeries None recorded . Imaging US, transvag inal 2022 023 [email or web address] [address], [address], [place], [address], 21:12:56 US, pelvis, complete 2022 023 [email or web address] [place], [address], [place], [address], 16:31:02 Medication Orders oxybutyn in chloride ER 10 mg tablet,e xtended release 24 hr 12/12/ 2023 12/12/2 023 VENUS [id number], [address], [place], [place], [id number], 3 17:01:46 Valium 10 mg tablet 2022 023 [email or web address] [facility] #[id number], [address], [place], [place], [id number], 16:26:24 Patient TargetsNo targets recorded. Patient InstructionsNo instructions recorded. Reason for Referral None Reported. Results Created Date Observation Date Name Description Value Unit Range Abnormal Flag Note LastModifiedBy Organization Detail LastModifiedTime 07/04/1907/03/2022 CT/GC AND TRICH OMONA S VAGIN BERNICE (RRNA ), SWAB chlamydia trachomatis, PCR Negati ve negati ve Not Available [facility] (Lab) [address], [place], [address], 07/05/2022 07:21:10 07/04/19 23 07/03/2022 CT/GC AND TRICH OMONA S VAGIN BERNICE (RRNA ), SWAB neisseria gonorrhoeae, PCR Negati ve negati ve Not Available [facility] (Lab) [address], [place], [address], 07/05/2022 07:21:10 07/04/19 23 07/03/2022 CT/GC AND TRICH OMONA S VAGIN BERNICE (RRNA ), SWAB trichomonas vaginalis ribosomal RNA (rrna) Negati ve negati ve Not Available [facility] (Lab) [address] [place], [address], 07/05/2022 07:21:10 07/04/1907/03/2022 CULTU RE: URINE result report SEE RESULT S BELOW Test: Cultu re: Urine Speci men Sourc e: Urine Voide d Speci men Type: Urine Speci men Date: 2022 4:55 PM Resul t Date: 2022 6:16 AM Resul t Statu s: Final resul t Abnor mal: No Resul ting Lab: [facility] [address] [facility] [address] Tel: CULTU RE ----- ----- ----- --- No growt h in 1 day (dete ction level of 10,00 0 colon ies / ml.) Not Available [facility] (Lab) [address], [place], [address], 07/05/2022 07:21:10 04/02/20 23 04/02/2023 IMAGE GUIDE [...] as clini zena cordoba nted. Not Available [facility] (Lab) [address], [place], [address], 04/05/2023 19:29:15 07/12/19 23 07/11/2022 US, trans vagin al No observ ation record ed. [email or web address] [place] [address], [place], [address], 07/11/2022 15:10:35 07/12/19 23 07/11/2022 US, trans vagin al No observ ation record ed. [email or web address] Teresa [address], [place], [address], 07/12/2022 10:57:22 Result Notes None recorded. Problems Name Problem SNOMED Code Status Onset Date Resolution Date Notes Provider Name and Address Organization Details Recorded Time Pelvic floor tension [id number] Active 022 Jane Luis MD [address], [place], [address], [facility] 14:35:05 Problem Notes None recorded. Procedures Surgical History Date Name Laterality Status Provider Name and Address Organization Details Recorded Time 04/02/20 Date of Last Pap Smear completed Citlalybenigno Poe [facility] 04/02/2023 16:27:08 01/12/20 23 Ekg for initial prevent exam completed [facility] 04/02/2023 11:19:37 06/21/19 23 procedure on heart completed [facility] 04/02/2023 16:28:13 04/22/19 08 appendectomy [facility] 04/02/2023 11:18:38 04/22/19 05 procedure on back completed Mariola Bahena [facility] 07/07/2021 11:11:28 04/22/18 96 Tubal Ligation completed Citlalybenigno Poe [facility] 04/02/2023 11:19:10 Imaging Results Imaging Date Name Status LastModified by Organization Details LastModified Time 07/11/2022 US, transvaginal completed [email or web address] Greg shane [address], [place], [address], 07/11/2022 15:10:35 07/11/2022 US, transvaginal completed [email or web address] Teresa [address], [place], [address], 07/12/2022 10:57:22 Procedure Notes None recorded. Medical [...] Updated DateTime 12/04/2021 167.64 cm 26.8 kg/m2 65911.33 g 137 mm[Hg] 86 mm[Hg] Mariola Bahena [facility] 2 15:38:34 Date Recorded Body height Systolic blood pressure Diastolic blood pressure Provider Name and Address Organization Details Last Updated DateTime 07/03/2022 167.64 cm 118 mm[Hg] 75 mm[Hg] Myra Roper [facility] 07/03/2022 16:54:03 Date Recorded Body height Body mass index (BMI) Body weight Systolic blood pressure Diastolic blood pressure Provider Name and Address Organization Details Last Updated DateTime 07/16/2022 167.64 cm 27 kg/m2 73645.93 g 116 mm[Hg] 72 mm[Hg] Amelia Burroughs [facility] 3 16:24:48 Date Recorded Body height Body mass index (BMI) Body weight Systolic blood pressure Diastolic blood pressure Provider Name and Address Organization Details Last Updated DateTime 04/02/2023 167.64 cm 23.7 kg/m2 13222.08 g 99 mm[Hg] 64 mm[Hg] Citlaly Poe [facility] 3 16:25:58 Social History Question Answer Notes LastModified by Organizat ion Details LastModified Time Tobacco Smoking Status Current Every Day Smoker Citlaly trevino, [facility] 04/02/2023 11:18:05 Are You Blind Or Do You Have Difficulty Seeing? No [email or web address] Information n ot available 04/02/2023 What Is Your Level Of Caffeine Consumption? Moderate [email or web address] Information not available 04/02/2023 In The 14 Days Before Symptom Onset, Have You Had Close Contact With A Laboratory-confirm ed COVID-19 While That Case Was Ill? No [email or web address] Information n ot available 04/02/2023 In The 14 Days Before Symptom Onset, Have You Had Close Contact With A Person Who Is Under Investigation For COVID-19 While That Person Was Ill? No [email or web address] Information not available 04/02/2023 Have You Been To An Area Known To Be High Risk For COVID-19? No Information not available 04/02/2023 Are You Deaf Or Do You Have Serious Difficulty Hearing? No [email or web address] Information not available 04/02/2023 What Type Of Diet Are You Following? REGULAR [email or web address] Information n ot available 04/02/2023 Have You Ever Been Counseled For Unhealthy Alcohol Use? No [email or web address] Information not available 04/02/2023 Do You Use Your Seat Belt Or Car Seat Routinely? Yes [email or web address] Information not available 04/02/2023 Do You Have Smoke And Carbon Monoxide Detectors In Your Home? Yes [email or web address] Information not available 04/02/2023 Do You Use Sunscreen Routinely? Yes [email or web address] Information not available 04/02/2023 Has Tobacco Cessation Counseling Been Provided? No [email or web address] Information not available 04/02/2023 Have You Used IV Drugs? No [email or web address] Information not available 04/02/2023 Do You Have Difficulty Walking Or Climbing Stairs? No [email or web address] Information not available 04/02/2023 Sex: Unknown Functional Status Question Answer Note LastModified by Organizat ion Details LastModified Time Do you use any illicit or recreational drugs? Yes marijuana [email or web address] Information not available 04/02/2023 Do you or have you ever used any other forms of tobacco or nicotine? Yes [email or web address] Information not available 04/02/2023 What is your level of alcohol consumption? Occasional [email or web address] Information not available 04/02/2023 Are you able to walk? YESWOREST [email or web address] Information not available 04/02/2023 Are you able to care for yourself? Yes [email or web address] Information not available 04/02/2023 Do you have difficulty dressing or bathing? No [email or web address] Information not available 04/02/2023 Do you or have you ever used e-cigarettes or vape? Current user of electronic cigarettes [email or web address] Information not available 04/02/2023 What is your exercise level? Occasional [email or web address] Information not available 04/02/2023 Mental Status Question Answer Note LastModified by Organization D etails LastModified Time Do you feel stressed (tense, restless, nervous, or anxious, or unable to sleep at night)? 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 [id number] Jane Luis MD [place] [address],[place] [address] 09/04/2021 14:10:53 09/04/2021 14:36:38 Pelvic floor tension 834380505 R29.898 Pain in pelvis 05427339 R10.2 [id number] Jane Luis MD [place] [address],[place] [address] 12/04/2021 15:21:05 12/26/2021 15:41:59 Pain in pelvis 47080702 R10.2 Low back pain 927819302 M54.50 Pain of hip region 80067 002 M25.559 138739 TUYET Kearney [place] [address],[place] [address] 07/03/2022 16:42:44 07/04/2022 17:04:16 Chronic pelvic pain of female 297077372 R10.2 This patient is a 56 -year-old [...] management moving forward Venereal d isease screening 501269125 Z11.3 [id number] José Miguel Saavedra MD [place] [address] [address] 07/11/2022 11:56:44 07/11/2022 12:42:53 Pain in pelvis 44405450 R10.2 [id number] José Miguel Saavedra MD [place] [address] [address] 07/16/2022 15:51:28 07/17/2022 11:38:32 Vaginospasm 57600621 N94.2 this patient is a 56-year-ol d [...] this is strictly a vaginal medication . [id number] José Miguel Saavedra MD [place] [address] [address] 04/02/2023 16:15:35 04/02/2023 17:23:39 Urge incontinence of urine 13178946 N39.41 Gynecologi c examination 06474959 Z01.419 Annual gynecologi kya exam performed. Patient [...] Member ID Guarantor Name 12/04/2021 2 [place] [employer] Cassandra Netta [id number] Cassandra Netta 12/04/2021 1 [place] Cassandra L [place] [id number] Cassandra Netta 07/03/2022 2 [place] Cassandra [place] [id number] Cassandra [place] 07/03/2022 1 [place] Cassandra L [place] [id number] Cassandra Netta 07/11/2022 2 [place] Cassandra [place] [id number] Cassandra [place] 07/11/2022 1 [place] Cassandra L [place] [id number] Cassandra Netta 07/16/2022 2 [place] [facility] Cassandra Netta [id number] Cassandra [place] 07/16/2022 1 [place] Cassandra L [place] [id number] Cassandra [place] 04/02/2023 2 [place] [facility] [place] [facility] Cassandra [place] [id number] Cassandra Castaneda 04/02/2023 1 [facility] Cassandra Castaneda [id number] Cassandra Castaneda Notes Date Note Type Note [...] XR. Jane Luis MD [address], [place], [address], [facility] 12/25/2021 17:09:20 07/04/19 23 text/htm l [...] flank pains TUYET Kearney [address], [place], [address], [facility] 07/03/2022 18:06:04 07/17/19 23 text/htm l this patient is a 56-year-old female presents for follow-up on pelvic pain and dyspareunia. We spent 40 minutes [id number]-[id number]. More than 50% was counseling. Talked about [...] José Miguel Saavedra MD [address], [place], [address], [facility] 07/19/2022 12:59:41 04/02/20 23 text/htm l Annual GYNReported bypatient.History:no gynecologic complaints Urinary symptoms:No hematuria;Urge incontinence Vulva:No genital lesion Vagina:Normal vaginal discharge Breast:No breast pain; No breast lump Sexual complaints:Pain during intercourse Menopausal Symptoms:Normal vaginal lubrication;Hot flashes Psychological symptoms:Depression;Anxiety; untreated - declined Preventive measures:Encourage self breast examination José Miguel Saavedra MD [address], [place], [address], [facility] 04/02/2023 17:12:00 OBGyn Episode Ob Episode Information Episode Created Date Number of Fetuses Patient Bloodtype Patient rh Status Prepregnancy Weight lbs Domestic Partner Domestic Partner Phone Father Name House Painter Status 07/08/19 22 1 CLOSED Fetus Data First Name Last Name Admitted to NICU Weight (g) Sex Living Outcome Pediatric Complications Fetus ID Race Codes Race Delivery Type 3089.86 8704 M Full Term 16821 Vaginal Delivery Lázaro Calculation Initial Lázaro Date [...] Domestic Partner Domestic Partner Phone Father Name House Painter Status 07/08/19 22 1 CLOSED Fetus Data First Name Last Name Admitted to NICU Weight (g) Sex Living Outcome Pediatric Complications Fetus ID Race Codes Race Delivery Type 3515.33 8 M Full Term [id number] Vaginal Delivery Lázaro Calculation Initial Lázaro Date [...]
== END 2024-09-09 07:52 | disposition home or self-care (01) ==
PROVIDERS: PCP Family Medicine Adolescent Medicine; Visit Provider Family Medicine Adolescent Medicine
DX: M47.894 Other spondylosis, thoracic region (principal)
CPT/HCPCS: 72146